=== PATIENT | male | born 1990 | race Caucasian/White ===

== ENCOUNTER 2024-12-22 18:12 | Inpatient (IN) | payer BC ==
[~2024-12-22] VITALS: Ht 170.2 cm; Wt 129.2 kg
[~2024-12-22 18:12] MED LIST: ATOM100C2 PO; ERGO500093 PO; HYOS-14 SL; LEVO5TAB13 PO; LISI2.5T13 PO; METF-446 PO; SEMA2PEN SQ; VENL-62 PO
--- NOTE | 2024-12-22 18:27 | ERN ---
ED Note History of Present Illness Stated Complaint: RIGHT LOWER ABD PAIN Chief Complaint: Abdominal Pain Time Seen by MD: 18:15 Time Seen by Midlevel: 18:15 Dictation: The patient is a 34-year-old male with a history of hypertension, diabetes, appendectomy who presents to the emergency department with complaints of right upper quadrant pain associated with nausea onset 30 minutes prior to arrival. Patient denies any fevers, diarrhea or constipation. Denies any urinary discomfort. Allergies: Coded Allergies: No Known Drug Allergies (Unverified Allergy, Unknown, 08/10/24) Home Meds Reported Medications Levocetirizine Dihydrochloride (Levocetirizine Dihydrochloride) 5 Mg Tablet, 5 MG PO HS, TAB 08/10/24 Ergocalciferol (Vitamin D2) (Vitamin D2) 1,250 Mcg (38484 Unit) Capsule, 1 TAB PO QWEEK 08/10/24 Semaglutide (Ozempic) 2 Mg/0.75 Ml (8 Mg/3 Ml) Pen.injctr, 2 MG SQ QWEEK 08/10/24 Venlafaxine HCl (Venlafaxine HCl ER) 37.5 Mg Cap.er.24h, 1 CAP PO DAILY 08/10/24 Lisinopril (Lisinopril) 2.5 Mg Tablet, 1 TAB PO DAILY 08/10/24 Hyoscyamine Sulfate (Hyoscyamine Sulfate) 0.125 Mg Tab.rapdis, 1 TAB SL QIDP PRN for indigestion 08/10/24 Metformin HCl (Metformin HCl) 1,000 Mg Tablet, 1 TAB PO DAILY 08/10/24 Atomoxetine HCl (Atomoxetine HCl) 100 Mg Capsule, 1 CAP PO HS 08/10/24 Past Medical History Past Medical History: Diabetes-Type II, Hypertension Surgical History: Appendectomy Surgical History Other: SURYA ALANIZ Note Reviewed/Agreed w/PFSH: Yes Review of System Dictation Constitutional: Negative for fever,chills, and weight loss Eyes: Negative for injury, pain,redness, and discharge ENT: Negative for injury,pain or swelling Cardiovascular: Negative for chest pain, palpitations, and edema Respiratory: Negative for shortness of breath, cough, and wheezing, Abdomen/GI: Negative for vomiting, diarrhea, and constipation positive for abdominal pain, nausea Back: Negative for injury and pain : Negative for injury, bleeding and discharge MS/Extremity: Negative for injury and deformity Skin: Negative for rash, and discoloration Neuro: Negative for headache, weakness, numbness, tingling, and seizure Psych: Negative for suicide ideation, homicidal ideation, and hallucinations Initial Vital Sign VS Vital Signs Date Time Temp Pulse Resp B/P (MAP) Pulse Ox O2 Delivery O2 Flow Rate FiO2 12/22/24 18:15 99.5 138 32 159/79 Room Air 12/22/24 18:44 95 0 21 Physical Exam Dictation Vital Signs reviewed General Appearance: Alert, oriented x 3, no acute distress, well developed, nourished. Head and Face: non-traumatic. Eyes: PERRL, pink conjunctivas, eyelid no trauma, anterior chamber with arcus senilis. Ears: Pinnas intact and no signs of trauma or erythema ear canals clear and no discharge TM no erythema Nose: No discharge, no bleeding. Oropharynx: Mouth normal, tongue pink. pharynx clear,no erythema, tonsils no exudates, no abscesses noted, mucous membrane moist Neck: Supple, non-tender, no thyromegaly, no masses, no JVD, no bruits Breast:Deferred Chest:No tenderness, no crepitus, no paradoxical movement, no retractions Lungs:Clear, well-ventilated, symmetric, no rales, no wheezing, no rhonchi, no stridor, good breath sounds bilaterally Heart: Regular rate, regular rhythm, no murmur, no gallops Vascular: no peripheral edema, Abdomen: Soft, positive bowel sounds, nondistended, no guarding, Right upper quadrant tenderness, no rebound, no masses no hepatomegaly, no splenomegaly, + Biggs's sign, no hernias. Rectal: Deferred Genital: Deferred Neurological: Normal speech, motor function intact, sensory function intact Musculoskeletal: Neck nontender, full range of motion, back nontender, full range of motion, Extremities: nontender, full range of motion Skin: Color pink, dry, no turgor, no rash, no lacerations, no abrasions, no contusions. Lymphatic: Deferred Results (Laboratory/Radiology) Laboratory/Radiology Laboratory Tests Test 12/22/24 18:31 12/22/24 18:58 12/22/24 19:33 12/22/24 21:45 White Blood Count 12.1 K/uL (4.8-10.8) H Red Blood Count 5.21 MIL/uL (4.50-6.20) Hemoglobin 15.4 g/dL (14.0-18.0) Hematocrit 46.4 % (42-54) Mean Corpuscular Volume 89.1 fL (79-99) Mean Corpuscular Hemoglobin 29.6 pg (27.0-33.0) Mean Corpuscular Hemoglobin Concent 33.2 g/dL (32.0-36.0) Red Cell Distribution Width 13.9 % (11.0-15.5) Platelet Count 303 K/uL (130-400) Mean Platelet Volume 8.8 fL (7.5-10.5) Immature Granulocyte % (Auto) 0.3 % (0-1) Neutrophils (%) (Auto) 70.0 % (40.0-77.0) Lymphocytes (%) (Auto) 25.5 % (21.0-51.0) Monocytes (%) (Auto) 3.2 % (3.0-13.0) Eosinophils (%) (Auto) 0.7 % (0.0-8.0) Basophils (%) (Auto) 0.3 % (0.0-5.0) Neutrophils # (Auto) 8.5 K/uL (1.8-7.7) H Lymphocytes # (Auto) 3.1 K/uL (1.0-4.8) Monocytes # (Auto) 0.4 K/uL (0.1-1.0) Eosinophils # (Auto) 0.08 K/uL (0.00-0.70) Basophils # (Auto) 0.04 K/uL (0.00-0.20) Absolute Immature Granulocyte (auto 0.04 K/uL (0-1) Nucleated Red Blood Cells 0.0 % (0.0-0.19) Sodium Level 137 mmol/L (136-145) Potassium Level 3.9 mmol/L (3.5-5.1) Chloride Level 101 mmol/L (101-111) Carbon Dioxide Level 24 mmol/L (21-32) Blood Urea Nitrogen 17 mg/dL (7-18) Creatinine 1.0 mg/dL (0.5-1.3) Glomerular Filtration Rate Calc 101 mL/min (>90) Random Glucose 144 mg/dL (70-105) H Total Calcium 9.3 mg/dL (8.5-10.1) Total Bilirubin 0.5 mg/dL (0.2-1.0) Direct Bilirubin 0.1 mg/dL (0.0-0.3) Aspartate Amino Transf (AST/SGOT) 20 U/L (10-37) Alanine Aminotransferase (ALT/SGPT) 54 U/L (12-78) Alkaline Phosphatase 92 U/L (50-136) Total Creatine Kinase 157 U/L (21-232) Troponin I High Sensitivity < 4 ng/L (4-75) L Total Protein 8.2 g/dL (6.0-8.3) Albumin 4.4 g/dL (3.5-5.0) Lipase 28 U/L (16-77) Lactic Acid Level 4.4 mmol/L (0.8-2.5) H Whole Blood Glucose 153 MG/DL (70-110) H Urine Color LIGHT-YELLOW (YELLOW) Urine Appearance CLEAR (CLEAR) Urine pH 5.5 (5.0-8.0) Urine Specific [place] OVER (1.001-1.031) Urine Protein NEGATIVE mg/dL (NEGATIVE) Urine Glucose (UA) NEGATIVE mg/dL (NEGATIVE) Urine Ketones 10 mg/dL (NEGATIVE) H Urine Occult Blood NEGATIVE (NEGATIVE) Urine Nitrate NEGATIVE (NEGATIVE) Urine Bilirubin NEGATIVE mg/dL (NEGATIVE) Urine Urobilinogen 0.2 mg/dL (0.2-1.0) Urine Leukocyte Esterase NEGATIVE Griffin/uL Urine RBC 0-1 /HPF (0-1) Urine WBC 0-1 /HPF (0-1) Urine Bacteria RARE /HPF (None Seen) Urine Hyaline Casts 6-10 /LPF (0-1 /LPF) H Urine Yeast RARE /HPF (None Seen) Urine Opiates Screen POSITIVE (NEGATIVE) H Urine Barbiturates Screen NEGATIVE (NEGATIVE) Urine Phencyclidine Screen NEGATIVE (NEGATIVE) Urine Amphetamines Screen NEGATIVE (NEGATIVE) Urine Benzodiazepines Screen NEGATIVE (NEGATIVE) Urine Cocaine Screen NEGATIVE (NEGATIVE) Urine Marijuana (THC) Screen NEGATIVE (NEGATIVE) REASON: ruq pain ORDERING PHYSICIAN: CRISTIAN LANGFORD [employer] PROCEDURE: CXR1VW - CHEST 1VW CHEST 1VW CLINICAL HISTORY: ruq pain COMPARISON: 08/10/2024 TECHNIQUE: Single view of the chest was obtained. FINDINGS: Lungs are clear. The cardiac size and mediastinum are unremarkable. The bony structures are within normal limits. IMPRESSION: No acute cardiopulmonary process identified. REASON: ruq abd pain, hx of abscess ORDERING PHYSICIAN: CRISTINA LANGFORD [facility] PROCEDURE: ABD PEL W - CT ABDOMEN/PELVIS W/CONTRAST CT ABDOMEN/PELVIS W/CONTRAST CLINICAL HISTORY: ruq abd pain, hx of abscess COMPARISON: 08/18/2024 TECHNIQUE: Sequential axial images of abdomen and pelvis with 75 mL of Omnipaque 350 IV contrast with sagittal and coronal reconstructions. CT was performed with one or more of the following dose reduction techniques: automated exposure control, adjustment of the mA and/or kV according to patient size, or use of iterative reconstruction technique. FINDINGS: There is minimal atelectasis lung bases. There is diffuse fatty infiltration of the enlarged liver. The spleen is unremarkable. The gallbladder pancreas and adrenal glands are unremarkable. The kidneys and bladder are within normal limits. There are scattered sigmoid colon diverticuli with no acute inflammatory changes. There is no identified bowel obstruction. Note is made of stranding in the right colic gutter and likely scarring with surgical clips or calculi at the prior appendectomy and abscess site. There is no identified recurrent or residual abscess. The bony structures are stable. IMPRESSION: Inflammatory changes in the right colic gutter and right lower quadrant with no identified abscess. Sigmoid diverticulosis. REASON: Adominal Pain ORDERING PHYSICIAN: CRISTINA LANGFORD [facility] PROCEDURE: ABDRUQLTD - US ABDOMINAL RUQ\LTD US ABDOMINAL RUQ\E\LTD HISTORY: Abdominal Pain COMPARISON: None FINDINGS: Liver demonstrates increased size and echogenicity with no focal lesions. The portal vein is patent. The gallbladder is free of calculi wall thickening or pericholecystic fluid. The pancreas is obscured by bowel gas. The common duct measures 6 mm. The right kidney measures 11.5 cm length and there is no identified hydronephrosis or nephrolithiasis. IMPRESSION: Limited study due to bowel gas. Large fatty liver. 6 mm common duct which is dilated for age. The gallbladder appears unremarkable. Labs Reviewed?: Yes EKG: (+) rhythm (Sinus tachycardia) EKG Comment: Date:12/22/2024 Time:1853 Ventricular rate:138 AR interval:132 QRS duration:79 QT/QTc:286 EKG interpretation: Sinus tachycardia Reviewed by ED Attending no STEMI ED Course ED Course Orders Procedure Category Date Status Time Cbc With Differential LAB 12/22/24 Complete 18:23 Troponin I High LAB 12/22/24 Complete Sensitivity 18:23 Urinalysis Profile LAB 12/22/24 Complete 18:23 Us Abdominal Ruq\Ltd US 12/22/24 Resulted 18:23 12 Lead Ekg Tracing- EKG 12/22/24 Logged Technical 18:23 0.9%Nacl 1000ml (Ns PHA 12/22/24 Complete 1000ml) 18:30 Morphine 4mg Syg PHA 12/22/24 Complete (Morphine 4mg Syg) 18:30 Ondansetron 4mg Inj PHA 12/22/24 Complete (Zofran 4mg Inj) 18:30 Pantoprazole 40mg Inj PHA 12/22/24 Complete (Protonix 40mg Inj 18:30 Creatine Kinase, Total LAB 12/22/24 Complete 18:23 Lipase LAB 12/22/24 Complete 18:23 Basic Metabolic Panel LAB 12/22/24 Complete 18:23 Hepatic Function Panel LAB 12/22/24 Complete 18:23 Drug Screen Urine LAB 12/22/24 Complete 18:23 Blood Cult FABIOLA 12/22/24 In Process 18:56 Zosyn 3.375gm+Ns 50ml PHA 12/22/24 Complete (Zosyn 3.375gm+Ns 18:56 0.9%Nacl 1000ml (Ns PHA 12/22/24 Complete 1000ml) 19:00 Lactic Acid LAB 12/22/24 Complete 18:56 Ct Abdomen/Pelvis CT 12/22/24 Resulted W/Contrast 19:08 Chest 1vw RAD 12/22/24 Resulted 19:29 Acetaminophen 500mg PHA 12/22/24 Complete Tab (Tylenol 500mg T 20:00 Iohexol (Omnipaque) PHA 12/22/24 Complete 20:00 Covid19 (Sars Antigen LAB 12/22/24 Logged Rapid) 22:10 Influenza Type A & B, LAB 12/22/24 Logged Rapid 22:10 Rapid (Group A Strep) LAB 12/22/24 Logged 22:10 Edm Admit Bridge Order ADM 12/22/24 Transmitted 22:10 Lactic Acid (Removed) LAB 12/22/24 Logged 22:13 Current Medications Medications (Trade) Dose Ordered Sig/Liss Route PRN Reason Start Time Stop Time Status Last Admin Dose Admin Acetaminophen (TYLenol 500MG TAB) 1,000 mg ONCE ONCE PO 12/22/24 20:00 12/22/24 20:01 DC 12/22/24 20:49 Iohexol (Omnipaque) 35,000 mg STK-MED ONCE IV 12/22/24 20:00 12/22/24 20:00 DC Morphine Sulfate (morPHINE 4MG SYG) 4 mg ONCE ONCE IVP 12/22/24 18:30 12/22/24 18:31 DC 12/22/24 19:40 Ondansetron HCl (zoFRAN 4MG INJ) 4 mg ONCE ONCE IVP 12/22/24 18:30 12/22/24 18:31 DC 12/22/24 19:40 Pantoprazole Sodium (PROTonix 40MG INJ) 40 mg ONCE ONCE IVP 12/22/24 18:30 12/22/24 18:31 DC 12/22/24 19:40 Piperacillin Sod/ Tazobactam Sod 50 ml @ 200 mls/hr STAT STAT IVPB 12/22/24 18:56 12/22/24 19:10 DC 12/22/24 19:31 Sodium Chloride 1,000 ml @ 0 mls/hr ONCE ONCE IV 12/22/24 18:30 12/22/24 18:58 DC Sodium Chloride 2,672 ml @ 890.666 mls/hr ONCE ONCE IV 12/22/24 19:00 12/22/24 21:59 DC 12/22/24 19:31 Vital Signs Date Time Temp Pulse Resp B/P (MAP) Pulse Ox O2 Delivery O2 Flow Rate FiO2 12/22/24 21:08 98.4 140 24 148/85 Room Air* 0 21 12/22/24 18:44 98.2 143 35 135/76 95 Room Air* 0 21 12/22/24 18:15 99.5 138 32 159/79 Room Air Medical Decision Making [facility] The patient is a 34-year-old male with a history of hypertension, diabetes, appendectomy who presents to the emergency department with complaints of right upper quadrant pain associated with nausea onset 30 minutes prior to arrival. Patient denies any fevers, diarrhea or constipation. Denies any urinary discomfort. CBC showed mild leukocytosis, no anemia, chemistry showed no electrolyte imbalance, negative lipase, negative liver enzymes, lactic acid of 4.4, urinalysis negative for leukocyte esterase, nitrites, chest x-ray showed no acute pathology. Right upper quadrant ultrasound revealed a 6 mm CBD, CT abdomen and pelvis showed inflammatory changes of the right colic gutter and right lower quadrant with no identified abscess. Patient denies any upper respiratory symptoms, patient denies any recent illness or wounds. No other symptoms reported. Patient will be admitted for further evaluation and treatment. Differential diagnosis: Sepsis, cholelithiasis, cholecystitis, electrolyte imbalance, abdominal abscess Comorbidities: Diabetes, hypertension, appendectomy Tests considered and not ordered secondary to shared decision making include: none Previous outside records reviewed: none Risk of complication and/or morbidity or mortality of patient management: The patient meets criteria for admission. Need for emergency major/minor surgery: No There are no social concerns with this patient. I independently interpreted the tests I ordered (labs, urinalysis, etc.). I discussed the case with the hospitalist for admission. [facility] who accepts admission I discussed the case with the following specialists: none. Historian: pateint. I independently interpreted imaging studies and EKGs that I ordered (US, CT, XR, EKG, etc.). External chart review: none. Medical management and examination interpretation discussions were had by me with other qualified healthcare professionals as indicated for the patient's care. Critical Care Note Critical Time: other (40) Comment(s) Total critical care time was 40 minutes. Excluding time for procedures. Management of critically ill patient with concern for acute decompensation. Management included interpretation of laboratory values and imaging, hemodynamics, time for consultation with consultants and admitting physician. DX & DISP Disposition: Inpatient Decision to Admit Date: Dec 22, 2024 Decision to Admit Time: 22:25 Departure Impression: Primary Impression: Severe sepsis Additional Impressions: Abdominal pain, right upper quadrant, Elevated lactic acid level, Leukocytosis, Tachycardia Condition: Stable Referrals: YORDY ARITA MD (PCP) I have examined patient, & reviewed all documents, & agreed W/ the Diagnosis, and Plan CRISTINA LANGFORD Dec 22, 2024 18:27
[2024-12-22] MEDS ORDERED: 0.9%NACL 1000ML 1,000 ML IV ONE (18:30)
[2024-12-22 18:39] LABS: BASOPHILS # (AUTO) 0.04 K/uL (0.00-0.20); BASOPHILS % (AUTO) 0.3 % (0.0-5.0); EOSINOPHILS # (AUTO) 0.08 K/uL (0.00-0.70); EOSINOPHILS % (AUTO) 0.7 % (0.0-8.0); HEMATOCRIT 46.4 % (42-54); IMMATURE GRANULOCYTE ABSOLUTE 0.04 K/uL (0-1); LYMPHOCYTES # (AUTO) 3.1 K/uL (1.0-4.8); LYMPHOCYTES % (AUTO) 25.5 % (21.0-51.0); MEAN CORPUSCULAR HEMOGLOBIN 29.6 pg (27.0-33.0); MEAN CORPUSCULAR HGB CONC 33.2 g/dL (32.0-36.0); MEAN CORPUSCULAR VOLUME 89.1 fL (79-99); MONOCYTES # (AUTO) 0.4 K/uL (0.1-1.0); MONOCYTES % (AUTO) 3.2 % (3.0-13.0); NEUTROPHILS # (AUTO) 8.5 K/uL (1.8-7.7); PLATELET COUNT (AUTO) 303 K/uL (130-400); RED BLOOD CELL COUNT(AUTO) 5.21 MIL/uL (4.50-6.20); RED CELL DISTRIBUTION WIDTH 13.9 % (11.0-15.5); WHITE BLOOD COUNT (AUTO) 12.1 K/uL (4.8-10.8)
[2024-12-22 18:48] LABS: POTASSIUM 3.9 mmol/L (3.5-5.1)
[2024-12-22 18:57] LABS: ALBUMIN 4.4 g/dL (3.5-5.0); BILIRUBIN,DIRECT 0.1 mg/dL (0.0-0.3); BILIRUBIN,TOTAL 0.5 mg/dL (0.2-1.0); TOTAL PROTEIN, SERUM 8.2 g/dL (6.0-8.3)
[2024-12-22] MEDS: [UNRECOGNIZED DRUG - OTHER] IV ONE (19:31)
[2024-12-22] MEDS: ZOSYN 3.375GM+NS 50ML 50 ML IVPB STA (19:31)
[2024-12-22] MEDS: morPHINE 4 MG SYG IVP ONE (19:40)
[2024-12-22] MEDS: PANTOPrazole 40 MG/VIAL IVP ONE (19:40)
[2024-12-22] MEDS: ondanSETRON 4MG INJ IVP ONE (19:40)
[2024-12-22] MEDS ORDERED: IOHEXOL 350 MG/ML 100ML INFUS..BTL IV ONE (20:00)
--- NOTE | 2024-12-22 20:14 | HMCIMG ---
CHEST 1VW CLINICAL HISTORY: ruq pain COMPARISON: 08/10/2024 TECHNIQUE: Single view of the chest was obtained. FINDINGS: Lungs are clear. The cardiac size and mediastinum are unremarkable. The bony structures are within normal limits. IMPRESSION: No acute cardiopulmonary process identified.
--- NOTE | 2024-12-22 20:27 | HMCIMG ---
US ABDOMINAL RUQ\E\LTD HISTORY: Abdominal Pain COMPARISON: None FINDINGS: Liver demonstrates increased size and echogenicity with no focal lesions. The portal vein is patent. The gallbladder is free of calculi wall thickening or pericholecystic fluid. The pancreas is obscured by bowel gas. The common duct measures 6 mm. The right kidney measures 11.5 cm length and there is no identified hydronephrosis or nephrolithiasis. IMPRESSION: Limited study due to bowel gas. Large fatty liver. 6 mm common duct which is dilated for age. The gallbladder appears unremarkable.
[2024-12-22] MEDS: acetaMINOPHEN 500 MG TABLET PO ONE (20:49)
--- NOTE | 2024-12-22 20:56 | HMCIMG ---
CT ABDOMEN/PELVIS W/CONTRAST CLINICAL HISTORY: ruq abd pain, hx of abscess COMPARISON: 08/18/2024 TECHNIQUE: Sequential axial images of abdomen and pelvis with 75 mL of Omnipaque 350 IV contrast with sagittal and coronal reconstructions. CT was performed with one or more of the following dose reduction techniques: automated exposure control, adjustment of the mA and/or kV according to patient size, or use of iterative reconstruction technique. FINDINGS: There is minimal atelectasis lung bases. There is diffuse fatty infiltration of the enlarged liver. The spleen is unremarkable. The gallbladder pancreas and adrenal glands are unremarkable. The kidneys and bladder are within normal limits. There are scattered sigmoid colon diverticuli with no acute inflammatory changes. There is no identified bowel obstruction. Note is made of stranding in the right colic gutter and likely scarring with surgical clips or calculi at the prior appendectomy and abscess site. There is no identified recurrent or residual abscess. The bony structures are stable. IMPRESSION: Inflammatory changes in the right colic gutter and right lower quadrant with no identified abscess. Sigmoid diverticulosis.
[2024-12-22 21:57] LABS: APPEARANCE,URINE CLEAR (CLEAR); BILIRUBIN,URINE NEGATIVE (NEGATIVE); COLOR,URINE LIGHT-YELLOW (YELLOW); GLUCOSE, URINE (UA) NEGATIVE (NEGATIVE); KETONES,URINE 10 mg/dL (NEGATIVE); LEUKOCYTE ESTERASE ,URINE NEGATIVE Leu/uL (NEGATIVE); NITRATE,URINE NEGATIVE (NEGATIVE); OCCULT BLOOD,URINE NEGATIVE (NEGATIVE); PH,URINE 5.5 (5.0-8.0); PROTEIN,URINE NEGATIVE (NEGATIVE); UROBILINOGEN,URINE 0.2 mg/dL (0.2-1.0)
[2024-12-22 21:59] LABS: ADD UA MICROSCOPIC YES; BACTERIA,URINE RARE /HPF (None Seen); MUCUS,URINE RARE LPF (None Seen); RBC,URINE 0-1 /HPF (0-1); WBC,URINE 0-1 /HPF (0-1); YEAST,URINE BUDDING RARE /HPF (None Seen)
[2024-12-22 22:05] LABS: AMPHET/METH SCREEN,URINE NEGATIVE (NEGATIVE); BARBITURATE SCREEN, URINE NEGATIVE (NEGATIVE); BENZODIAZEPINES SCREEN,URINE NEGATIVE (NEGATIVE); CANNABINOID SCREEN,URINE NEGATIVE (NEGATIVE); COCAINE SCREEN,URINE NEGATIVE (NEGATIVE); OPIATE SCREEN,URINE POSITIVE (NEGATIVE); PHENCYCLIDINE SCREEN,URINE NEGATIVE (NEGATIVE)
[2024-12-22 23:12] LABS: COVID19 (SARS ANTIGEN RAPID) PRESUMPTIVE NEGATIVE (NEGATIVE)
[2024-12-22 23:32] LABS: INFLUENZA TYPE A Negative For Type A (NEGATIVE); INFLUENZA TYPE B Negative For Type B (NEGATIVE)
[2024-12-22] MEDS: metoPROLOL tartRATE 1 MG/ML 5ML VIAL IV ONE (23:34)
[2024-12-22 23:36] LABS: RAPID GROUP A STREP NEGATIVE (NEGATIVE)
[2024-12-22] MEDS: 0.9%NACL 1000ML 1,000 ML IV SCH (23:45)
--- NOTE | 2024-12-22 23:59 | HP ---
[facility] HISTORY & PHYSICAL Date Patient Seen: Dec 22, 2024 Time of Visit: 23:57 Supervising Physician: Dr Po Cabello Primary Care Physician: Dr. Hutchison Outpatient Specialists: [ ] Inpatient Consults: [ ] PROBLEM LIST: Acute abdominal pain, ultrasound of the abdomen showed fatty liver with 6 mm common bile duct, CT of the abdomen showed possible colitis Hepatic steatosis, POA Hypertension, POA DM type 2, with hyperglycemia, POA Morbid obesity, BMI of 45.2 POA Leukocytosis, POA Lactic acidosis, POA Sepsis, likely from intra-abdominal infection initial lactic acid level above 4, trending down PLAN: Admit to medical-surgical floor Multimodal pain relief VS per unit protocol Continue Zosyn IV Treat fever aggressively Trend lactic acid level Give 1 L of IV fluids x1 bolus now [id number] cc/hour Follow up culture results NPO for now Aspiration precautions Zofran4 mg IV q.6 for nausea and vomiting ISS and fingerstick per unit protocol HPI: 34-year-old male with past medical history of hypertension, DM type 2, who presented to ED with complaint of right upper quadrant pain with associated nausea and found to have acute abdomen and possible colitis. Patient was seen and examined in ED with no relatives present at bedside. Apparently his abdominal pain started 30 minutes prior to admission with no associated vomiting. Patient also denies any fever, diarrhea, possible food poisoning. Also denies any history of peptic ulcer disease, or use of NSAIDs. In ED stat chest x-ray was done showed no acute intrapulmonary process, CT of the abdomen showed hepatic steatosis and possible colitis, his ultrasound of the abdomen showed 6 mm cystic duct which is dilated for his age. CBC is remarkable for [place] [id number], chemistry unrevealing for any acute electrolyte or kidney dysfunction. His initial lactic acid level was 4.4, now at 2.8 Following IV bolus of3 L and one dose of IV Zosyn. At present patient is currently hemodynamically stable, on room air with appropriate oxygen saturation, still with heart rate of 119, with adequate systolic blood pressure. Patient denies any headache, chest pain, shortness of breath, difficulty urinating, fever, or generalized body weakness. Patient denies any smoking, or any alcohol intake. Patient was previously vaccinated against COVID and his flu shot is not up-to-date. PAST MEDICAL HX: see above PAST SURGICAL HX: Appendectomy SOCIAL HISTORY: No tobacco, ETOH, or illicit drug use Coded Allergies: No Known Drug Allergies (Unverified Allergy, Unknown, 08/10/24) REVIEW OF SYSTEMS: 12 point ROS reviewed with patient. Pertinent positives mentioned above. Otherwise negative. PHYSICAL EXAM: GENERAL: alert, weak, awake oriented x 3 HEENT: EOMI, Sclera non icteric, moist mucosa NECK: Supple, no JVD, trachea midline LUNGS: Clear breath sounds bilaterally. No wheezes HEART: Regular rate and rhythm. Normal S1 and S2, without murmurs ABD: Large abdomen, right upper quadrant tenderness on palpation EXT: No clubbing cyanosis or edema NEURO: Alert and oriented to person, follows commands Vital Signs (last 8hr) Date Time Temp Pulse Resp B/P (MAP) Pulse Ox O2 Delivery O2 Flow Rate FiO2 12/22/24 23:34 127 126/75 12/22/24 22:45 99.1 129 29 132/59 Room Air* 0 21 12/22/24 21:08 98.4 140 24 148/85 Room Air* 0 21 12/22/24 18:44 98.2 143 35 135/76 95 Room Air* 0 21 12/22/24 18:15 99.5 138 32 159/79 Room Air LABS: Hematology Labs: Test 12/22/24 18:31 Range/Units White Blood Count 12.1 H 4.8-10.8 K/uL Red Blood Count 5.21 4.50-6.20 MIL/uL Hemoglobin 15.4 14.0-18.0 g/dL Hematocrit 46.4 42-54 % Mean Corpuscular Volume 89.1 79-99 fL Mean Corpuscular Hemoglobin 29.6 27.0-33.0 pg Mean Corpuscular Hemoglobin Concent 33.2 32.0-36.0 g/dL Red Cell Distribution Width 13.9 11.0-15.5 % Platelet Count 303 130-400 K/uL Mean Platelet Volume 8.8 7.5-10.5 fL Immature Granulocyte % (Auto) 0.3 0-1 % Neutrophils (%) (Auto) 70.0 40.0-77.0 % Lymphocytes (%) (Auto) 25.5 21.0-51.0 % Monocytes (%) (Auto) 3.2 3.0-13.0 % Eosinophils (%) (Auto) 0.7 0.0-8.0 % Basophils (%) (Auto) 0.3 0.0-5.0 % Neutrophils # (Auto) 8.5 H 1.8-7.7 K/uL Lymphocytes # (Auto) 3.1 1.0-4.8 K/uL Monocytes # (Auto) 0.4 0.1-1.0 K/uL Eosinophils # (Auto) 0.08 0.00-0.70 K/uL Basophils # (Auto) 0.04 0.00-0.20 K/uL Absolute Immature Granulocyte (auto 0.04 0-1 K/uL Nucleated Red Blood Cells 0.0 0.0-0.19 % Chemistry Labs: Test 12/22/24 22:30 12/22/24 19:33 12/22/24 18:31 Range/Units Lactic Acid Level 2.8 H 0.8-2.5 mmol/L Whole Blood Glucose 153 H 70-110 MG/DL Sodium Level 137 136-145 mmol/L Potassium Level 3.9 3.5-5.1 mmol/L Chloride Level 101 101-111 mmol/L Carbon Dioxide Level 24 21-32 mmol/L Blood Urea Nitrogen 17 7-18 mg/dL Creatinine 1.0 0.5-1.3 mg/dL Glomerular Filtration Rate Calc 101 >90 mL/min Random Glucose 144 H 70-105 mg/dL Total Calcium 9.3 8.5-10.1 mg/dL Total Bilirubin 0.5 0.2-1.0 mg/dL Direct Bilirubin 0.1 0.0-0.3 mg/dL Aspartate Amino Transf (AST/SGOT) 20 10-37 U/L Alanine Aminotransferase (ALT/SGPT) 54 12-78 U/L Alkaline Phosphatase 92 50-136 U/L Total Creatine Kinase 157 21-232 U/L Troponin I High Sensitivity < 4 L 4-75 ng/L Total Protein 8.2 6.0-8.3 g/dL Albumin 4.4 3.5-5.0 g/dL Lipase 28 16-77 U/L DIAGNOSTICS / RADIOLOGY RESULTS: CT ABDOMEN/PELVIS W/CONTRAST CLINICAL HISTORY: ruq abd pain, hx of abscess COMPARISON: 08/18/2024 TECHNIQUE: Sequential axial images of abdomen and pelvis with 75 mL of Omnipaque 350 IV contrast with sagittal and coronal reconstructions. CT was performed with one or more of the following dose reduction techniques: automated exposure control, adjustment of the mA and/or kV according to patient size, or use of iterative reconstruction technique. FINDINGS: There is minimal atelectasis lung bases. There is diffuse fatty infiltration of the enlarged liver. The spleen is unremarkable. The gallbladder pancreas and adrenal glands are unremarkable. The kidneys and bladder are within normal limits. There are scattered sigmoid colon diverticuli with no acute inflammatory changes. There is no identified bowel obstruction. Note is made of stranding in the right colic gutter and likely scarring with surgical clips or calculi at the prior appendectomy and abscess site. There is no identified recurrent or residual abscess. The bony structures are stable. IMPRESSION: Inflammatory changes in the right colic gutter and right lower quadrant with no identified abscess. Sigmoid diverticulosis. CHEST 1VW CLINICAL HISTORY: ruq pain COMPARISON: 08/10/2024 TECHNIQUE: Single view of the chest was obtained. FINDINGS: Lungs are clear. The cardiac size and mediastinum are unremarkable. The bony structures are within normal limits. IMPRESSION: No acute cardiopulmonary process identified. US ABDOMINAL RUQ\E\LTD HISTORY: Abdominal Pain COMPARISON: None FINDINGS: Liver demonstrates increased size and echogenicity with no focal lesions. The portal vein is patent. The gallbladder is free of calculi wall thickening or pericholecystic fluid. The pancreas is obscured by bowel gas. The common duct measures 6 mm. The right kidney measures 11.5 cm length and there is no identified hydronephrosis or nephrolithiasis. IMPRESSION: Limited study due to bowel gas. Large fatty liver. 6 mm common duct which is dilated for age. The gallbladder appears unremarkable. PLAN NEURO: Minimize central acting medications as possible. Maintain fall precautions, adequate lighting during the day PULMONARY: Supplemental 02 as needed. Maintain aspiration precautions at all times CARDIOVASCULAR: Follow hemodynamics. Vital signs per facility protocol GI & NUTRITION: Continue with nutritional support. Continue stool softeners and laxatives as needed. KIDNEYS & ELECTROLYTES: Strict monitoring of intake, output and overall fluid balance. Avoid nephrotoxic medications to the extent possible. Medications to be dosed according to renal function. Monitor electrolytes and replace as needed ENDOCRINE: Maintain blood glucose between 100-180 at all times. Hypoglycemia protocol in place INFECTIOUS DISEASE: Trend temperature, WBC and procalcitonin level Follow cultures, deescalate antibiotics as soon as possible. Panculture if new onset fever ONCOLOGY/HEMATOLOGY/COAGULATION: Monitor for s/s of bleeding Monitor hemoglobin, coagulation studies as needed SKIN: Pressure ulcer prevention per facility protocol Specialty mattress ORTHO/REHAB: Continue PT/OT Prophylaxis: Continue GI and DVT prophylaxis Code Status: Full Resuscitation Disposition: TBD Supervising physician: IVANIA Garcia DIRECTOR OF CLINICAL EDUCATION Dec 22, 2024 23:59
[2024-12-23] MEDS ORDERED: morPHINE 2 MG SYG IVP PRN
[2024-12-23] MEDS ORDERED: hydrALAZine 20MG/ML VIAL IV PRN
[2024-12-23] MEDS ORDERED: ondanSETRON 4MG INJ IVP PRN
[2024-12-23] MEDS ORDERED: acetaMINOPHEN 650 MG SUPPOSITORY RC PRN
[2024-12-23] MEDS: INSULIN humuLIN R 100 UNIT/ML 3ML SQ SCH
[2024-12-23] MEDS ORDERED: LAbetaLOL 20MG SYG IV PRN
[2024-12-23] MEDS ORDERED: 0.9%NACL 1000ML 1,000 ML IV SCH (00:30)
[2024-12-23] MEDS ORDERED: HYDROcodone/APAP 5/325 1 TAB TABLET PO PRN (00:30)
[2024-12-23] MEDS: ZOSYN 3.375GM +NS 50ML IV SCH (01:09)
[2024-12-23] MEDS: LACTATED RINGERS 1000ML 1,000 ML IV SCH (01:10)
--- NOTE | 2024-12-23 01:46 | NUR ---
PATIENT DIDN'T HAVE HIS HOME MEDICATIONS AT THIS TIME WILL HAVE FAMILY BRING IN THE MORNING
[2024-12-23 02:43] VITALS: BP 130/72; PULSE 111; RESP 20; TEMP 98.5
[2024-12-23 02:45] VITALS: O2SAT 95
[2024-12-23 05:34] LABS: BASOPHILS # (AUTO) 0.04 K/uL (0.00-0.20); BASOPHILS % (AUTO) 0.3 % (0.0-5.0); EOSINOPHILS # (AUTO) 0.01 K/uL (0.00-0.70); EOSINOPHILS % (AUTO) 0.1 % (0.0-8.0); HEMATOCRIT 39.3 % (42-54); IMMATURE GRANULOCYTE ABSOLUTE 0.06 K/uL (0-1); LYMPHOCYTES # (AUTO) 2.2 K/uL (1.0-4.8); LYMPHOCYTES % (AUTO) 15.7 % (21.0-51.0); MEAN CORPUSCULAR HGB CONC 32.8 g/dL (32.0-36.0); MEAN CORPUSCULAR VOLUME 88.3 fL (79-99); MONOCYTES # (AUTO) 0.7 K/uL (0.1-1.0); MONOCYTES % (AUTO) 5.2 % (3.0-13.0); NEUTROPHILS % (AUTO) 78.3 % (40.0-77.0); PLATELET COUNT (AUTO) 219 K/uL (130-400); RED BLOOD CELL COUNT(AUTO) 4.45 MIL/uL (4.50-6.20); RED CELL DISTRIBUTION WIDTH 14.2 % (11.0-15.5); WHITE BLOOD COUNT (AUTO) 14.1 K/uL (4.8-10.8)
[2024-12-23 05:46] LABS: CREATININE 0.9 mg/dL (0.5-1.3); MAGNESIUM 1.6 mg/dL (1.80-2.40); PHOSPHORUS 3.3 mg/dL (2.5-4.9)
--- NOTE | 2024-12-23 06:45 | EKG ---
[facility] Test Date: 2024-12-22 Test Time: 18:53:31 Pat Name: MARYCRUZ CORDERO Department: [facility] Room: 328 1 Gender: M [employer] Manager: [id number] : 1990 Requested By: CRISTINA LANGFORD Order Number: [id number] Reading MD: Suraj Davidson Measurements Intervals [place] Rate: 138 P: 28 AR: 132 QRS: 56 QRSD: 79 T: -1 QT: 286 QTc: 433 Interpretive Statements Sinus tachycardia Compared to ECG 08/11/2024 17:36:55 No significant changes Electronically Signed On 12-23-2024 22:16:40 CDT by Suraj Davidson Please click the below link to view image of tracing.
[2024-12-23 08:00] VITALS: BP 130/77; PULSE 115; RESP 19; TEMP 98.2; O2SAT 93
[2024-12-23] MEDS: ENOXAPARIN SODIUM 40 MG/0.4 ML SYRINGE SQ SCH (10:20)
[2024-12-23] MEDS ORDERED: LISI10TA24 PO (10:51)
[2024-12-23] MEDS ORDERED: VENL75CA97 PO (10:51)
--- NOTE | 2024-12-23 10:55 | PN ---
[facility] PROGRESS NOTE Date Patient Seen: Dec 23, 2024 Time of Visit: 10:39 Supervising Physician: [Dr. Cabello] Primary Care Physician: Dr. Hutchison Outpatient Specialists: [ ] Inpatient Consults: [ ] PROBLEM LIST: Sepsis without septic shock, POA Acute colitis, per CT abdomen Possible acute cholecystitis with CBD dilation for abdominal ultrasound, POA Acute intractable abdominal pain, POA Lactic acidosis Hepatic steatosis, POA Hypertension, POA DM type 2, with hyperglycemia, POA Morbid obesity, BMI of 45.2 POA Leukocytosis, POA Lactic acidosis, POA PLAN: HIDA scan Order TSH, CK Order pro azalia, repeat lactic acid Continue IVF with NS at 125 mL an hour Multimodal pain relief VS per unit protocol Continue Zosyn IV Treat fever aggressively Trend lactic acid level Repeat Labs in a.m. Follow up blood culture results NPO for now Aspiration precautions Zofran4 mg IV q.6 for nausea and vomiting Resume home medications GI and DVT prophylaxis Further management per hospital course INTERVAL HISTORY: [Patient was evaluated at bedside. He was admitted for evaluation of abdominal pain associated with nausea 30 minutes [employer]. Patient states his pain was 8/10 prior to admission now improved to 1/10 with pain medication. Continues with the abdominal discomfort. States starts in right lower quadrant and radiates to right upper quadrant as well as to epigastric region. He was associated bloating. His last meal was yesterday around noon repeat overnight notes, last bowel movement was last night in the ED and reported as normal. Patient states he recently started Mounjaro this past Monday and was due for repeat dose monday. His WBCs remain elevated, lactic acid is downtrending. CT of the abdomen reveals inflammatory changes to right colic gutter and right lower quadrant without abscess formation. His right upper quadrant ultrasound revealed 6 mm common bile duct dilation without calculus, wall thickening or pericholecystic fluid. He continues on Zosyn and NS at 125 mL an hour. Curre ntly NPO, pending blood culture results.] REVIEW OF SYSTEMS: 12 point ROS reviewed with patient. Pertinent positives mentioned above. Otherwise negative. PHYSICAL EXAM: GENERAL: alert, weak, awake oriented x 3 HEENT: EOMI, Sclera non icteric, moist mucosa NECK: Supple, no JVD, trachea midline LUNGS: Clear breath sounds bilaterally. No wheezes HEART: Regular rate and rhythm. Normal S1 and S2, without murmurs ABD: Large abdomen, right upper quadrant tenderness on palpation EXT: No clubbing cyanosis or edema NEURO: Alert and oriented to person, follows commands Vital Signs (last 8hr) Date Time Temp Pulse Resp B/P (MAP) Pulse Ox O2 Delivery O2 Flow Rate FiO2 12/23/24 08:00 98.2 115 19 130/77 93 Room Air 12/23/24 02:45 95 Room Air* 0 21 12/23/24 02:43 98.4 111 20 130/72 95 Room Air LABS: Hematology Labs: Test 12/23/24 05:25 Range/Units White Blood Count 14.1 H 4.8-10.8 K/uL Red Blood Count 4.45 L 4.50-6.20 MIL/uL Hemoglobin 12.9 L 14.0-18.0 g/dL Hematocrit 39.3 L 42-54 % Mean Corpuscular Volume 88.3 79-99 fL Mean Corpuscular Hemoglobin 29.0 27.0-33.0 pg Mean Corpuscular Hemoglobin Concent 32.8 32.0-36.0 g/dL Red Cell Distribution Width 14.2 11.0-15.5 % Platelet Count 219 # 130-400 K/uL Mean Platelet Volume 8.7 7.5-10.5 fL Immature Granulocyte % (Auto) 0.4 0-1 % Neutrophils (%) (Auto) 78.3 H 40.0-77.0 % Lymphocytes (%) (Auto) 15.7 L 21.0-51.0 % Monocytes (%) (Auto) 5.2 3.0-13.0 % Eosinophils (%) (Auto) 0.1 0.0-8.0 % Basophils (%) (Auto) 0.3 0.0-5.0 % Neutrophils # (Auto) 11.0 H 1.8-7.7 K/uL Lymphocytes # (Auto) 2.2 1.0-4.8 K/uL Monocytes # (Auto) 0.7 0.1-1.0 K/uL Eosinophils # (Auto) 0.01 0.00-0.70 K/uL Basophils # (Auto) 0.04 0.00-0.20 K/uL Absolute Immature Granulocyte (auto 0.06 0-1 K/uL Nucleated Red Blood Cells 0.0 0.0-0.19 % Chemistry Labs: Test 12/23/24 05:26 12/23/24 05:25 12/22/24 22:30 12/22/24 18:31 Range/Units Whole Blood Glucose 137 H 70-110 MG/DL Sodium Level 136 136-145 mmol/L Potassium Level 4.0 3.5-5.1 mmol/L Chloride Level 103 101-111 mmol/L Carbon Dioxide Level 25 21-32 mmol/L Blood Urea Nitrogen 10 7-18 mg/dL Creatinine 0.9 0.5-1.3 mg/dL Glomerular Filtration Rate Calc 114 >90 mL/min Random Glucose 129 H 70-105 mg/dL Total Calcium 8.1 L 8.5-10.1 mg/dL Phosphorus Level 3.3 2.5-4.9 mg/dL Magnesium Level 1.60 L 1.80-2.40 mg/dL Lactic Acid Level 2.8 H 0.8-2.5 mmol/L Total Bilirubin 0.5 0.2-1.0 mg/dL Direct Bilirubin 0.1 0.0-0.3 mg/dL Aspartate Amino Transf (AST/SGOT) 20 10-37 U/L Alanine Aminotransferase (ALT/SGPT) 54 12-78 U/L Alkaline Phosphatase 92 50-136 U/L Total Creatine Kinase 157 21-232 U/L Troponin I High Sensitivity < 4 L 4-75 ng/L Total Protein 8.2 6.0-8.3 g/dL Albumin 4.4 3.5-5.0 g/dL Lipase 28 16-77 U/L DIAGNOSTICS / RADIOLOGY RESULTS: [Reviewed, pending HIDA scan] PLAN NEURO: Minimize central acting medications as possible. Maintain fall precautions, adequate lighting during the day PULMONARY: Supplemental 02 as needed. Maintain aspiration precautions at all times CARDIOVASCULAR: Follow hemodynamics. Vital signs per facility protocol GI & NUTRITION: Continue with nutritional support. Continue stool softeners and laxatives as needed. KIDNEYS & ELECTROLYTES: Strict monitoring of intake, output and overall fluid balance. Avoid nephrotoxic medications to the extent possible. Medications to be dosed according to renal function. Monitor electrolytes and replace as needed ENDOCRINE: Maintain blood glucose between 100-180 at all times. Hypoglycemia protocol in place INFECTIOUS DISEASE: Trend temperature, WBC and procalcitonin level Follow cultures, deescalate antibiotics as soon as possible. Panculture if new onset fever ONCOLOGY/HEMATOLOGY/COAGULATION: Monitor for s/s of bleeding Monitor hemoglobin, coagulation studies as needed SKIN: Pressure ulcer prevention per facility protocol Specialty mattress ORTHO/REHAB: Continue PT/OT Prophylaxis: Continue GI and DVT prophylaxis Code Status: Full Resuscitation Disposition: DIMITRIS DE LOS SANTOS Dec 23, 2024 10:55
[2024-12-23 11:05] LABS: THYROID STIMULATING HORMONE 1.2 uIU/mL (0.36-3.74)
[2024-12-23 12:00] VITALS: BP 142/89; PULSE 112; RESP 19; TEMP 98.2
--- NOTE | 2024-12-23 14:21 | NUR ---
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 He currently lives at home with his mother Glo Greco [phone]. Pt denies issues affording utilities or food, denies need for SNF, DME or in home care services. PCP is Richard Hutchison and he uses [facility] for his rx. DCP is home with mother. Addendum: 12/23/24 at 1427 by CHRIS LITTLE Amended: Links added.
[2024-12-23] MEDS: HYDROcodone/APAP 5/325 1 TAB TABLET PO PRN (18:21)
--- NOTE | 2024-12-23 18:48 | HMCIMG ---
NM HIDA WO EF/CCK REASON: r/o acute chance COMPARISON: None TECHNIQUE: Routine imaging protocol was performed following injection of 7.5 mCi technetium 99m Choletec. 2 heavily imaging was performed as well. FINDINGS: There is prompt hepatic parenchymal uptake. There is prompt excretion into the common duct and small bowel. There is near complete clearing of hepatic activity by one hour. Gallbladder activity was not identified on the 1 hour image. 2 hour delay images also show no evidence of gallbladder activity. IMPRESSION: 1. No gallbladder activity through 2 hours, this can reflect acute cholecystitis in the appropriate clinical setting. 2. No evidence of common duct obstruction, the remainder of exam is unremarkable.
[2024-12-23 20:37] VITALS: BP 149/87; PULSE 109; RESP 18; TEMP 99
[2024-12-23] MEDS: ATOMOXETINE HCL PO SCH (21:00)
[2024-12-23] MEDS: (Levocetirizine Dihydrochloride 5 MG) PO SCH (21:00)
[2024-12-24 01:10] VITALS: BP 143/83; PULSE 118; RESP 17; TEMP 98.1
[2024-12-24] MEDS: acetaMINOPHEN 325 MG TAB PO PRN (03:05)
[2024-12-24 04:04] LABS: BASOPHILS # (AUTO) 0.03 K/uL (0.00-0.20); BASOPHILS % (AUTO) 0.2 % (0.0-5.0); HEMATOCRIT 39.6 % (42-54); IMMATURE GRANULOCYTE ABSOLUTE 0.11 K/uL (0-1); LYMPHOCYTES # (AUTO) 1.5 K/uL (1.0-4.8); LYMPHOCYTES % (AUTO) 10.4 % (21.0-51.0); MEAN CORPUSCULAR HEMOGLOBIN 29.7 pg (27.0-33.0); MEAN CORPUSCULAR HGB CONC 33.6 g/dL (32.0-36.0); MEAN CORPUSCULAR VOLUME 88.4 fL (79-99); MONOCYTES % (AUTO) 7.2 % (3.0-13.0); NEUTROPHILS # (AUTO) 11.7 K/uL (1.8-7.7); NEUTROPHILS % (AUTO) 81.4 % (40.0-77.0); PLATELET COUNT (AUTO) 235 K/uL (130-400); RED BLOOD CELL COUNT(AUTO) 4.48 MIL/uL (4.50-6.20); RED CELL DISTRIBUTION WIDTH 14.3 % (11.0-15.5); WHITE BLOOD COUNT (AUTO) 14.3 K/uL (4.8-10.8)
[2024-12-24 04:19] LABS: ALBUMIN 3.2 g/dL (3.5-5.0); BILIRUBIN,TOTAL 0.9 mg/dL (0.2-1.0); CREATININE 0.8 mg/dL (0.5-1.3); POTASSIUM 3.7 mmol/L (3.5-5.1); TOTAL PROTEIN, SERUM 7.1 g/dL (6.0-8.3)
[2024-12-24 04:42] VITALS: BP 163/86; PULSE 115; RESP 17; TEMP 99.2
[2024-12-24 08:00] VITALS: BP 165/92; PULSE 116; RESP 18; TEMP 98.2; O2SAT 99
[2024-12-24] MEDS: PANTOPrazole 40 MG/VIAL IVP SCH (09:44)
[2024-12-24] MEDS: MAGNESIUM 2GM PREMIX 50ML 50 ML IV PRN (09:48)
[2024-12-24] MEDS ORDERED: METO25 PO (10:36)
[2024-12-24 12:00] VITALS: BP 143/81; PULSE 115; RESP 19; TEMP 98.3
--- NOTE | 2024-12-24 12:21 | PN ---
[facility] PROGRESS NOTE Date Patient Seen: Dec 24, 2024 Time of Visit: 12:07 Supervising Physician: [Dr Rivas Primary Care Physician: Dr. Hutchison Outpatient Specialists: [ ] Inpatient Consults: [Dr Rinaldi PROBLEM LIST: Sepsis without septic shock, POA Acute colitis, per CT abdomen Acute cholecystitis with CBD dilation for abdominal ultrasound, POA Acute intractable abdominal pain, POA Lactic acidosis Hepatic steatosis, POA Hypertension, POA DM type 2, with hyperglycemia, POA Morbid obesity, BMI of 45.2 POA Leukocytosis, POA Lactic acidosis, POA PLAN SUMMARY: Supplemental oxygen as needed Continue Zosyn Keep NPO Continue IV fluids Consult Dr. Rinaldi for acute cholecystitis Dispo: Home once medically stable for discharge INTERVAL HISTORY: [Patient was evaluated at bedside. 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 Continues with the abdominal discomfort. States starts in right lower quadrant and radiates to right upper quadrant as well as to epigastric region. He was associated bloating. His last meal was yesterday around noon repeat overnight notes, last bowel movement was last night in the ED and reported as normal. Patient states he recently started Mounjaro this past Monday and was due for repeat dose this Monday. His WBCs remain elevated, lactic acid is downtrending. CT of the abdomen reveals inflammatory changes to right colic gutter and right lower quadrant without abscess formation. His right upper quadrant ultrasound re vealed 6 mm common bile duct dilation without calculus, wall thickening or pericholecystic fluid. He continues on Zosyn and NS at 125 mL an hour. Currently NPO, pending blood culture results.] 12/24 - Patient is seen laying in bed resting quietly continues with right upper quadrant pain. Positive Biggs's sign. Patient had an HIDA scan and results suggest acute cholecystitis. Dr. Rinaldi has been consulted and currently pending evaluation and recommendations. No acute changes reported overnight. Vital signs are stable. Labs show patient continues with leukocytosis of 14.3. We will continue current antibiotics for now. We will await further recommendations from Dr. Rinaldi. REVIEW OF SYSTEMS: 12 point ROS reviewed with patient. Pertinent positives mentioned above. Otherwise negative. PHYSICAL EXAM: GENERAL: alert, weak, awake oriented x 3 HEENT: EOMI, Sclera non icteric, moist mucosa NECK: Supple, no JVD, trachea midline LUNGS: Clear breath sounds bilaterally. No wheezes HEART: Regular rate and rhythm. Normal S1 and S2, without murmurs ABD: Large abdomen, right upper quadrant tenderness on palpation EXT: No clubbing cyanosis or edema NEURO: Alert and oriented to person, follows commands Vital Signs (last 8hr) Date Time Temp Pulse Resp B/P (MAP) Pulse Ox O2 Delivery O2 Flow Rate FiO2 12/24/24 08:00 98.2 116 18 165/92 94 Room Air 12/24/24 04:42 99.1 115 17 163/86 93 LABS: Hematology Labs: Test 12/24/24 03:55 Range/Units White Blood Count 14.3 H 4.8-10.8 K/uL Red Blood Count 4.48 L 4.50-6.20 MIL/uL Hemoglobin 13.3 L 14.0-18.0 g/dL Hematocrit 39.6 L 42-54 % Mean Corpuscular Volume 88.4 79-99 fL Mean Corpuscular Hemoglobin 29.7 27.0-33.0 pg Mean Corpuscular Hemoglobin Concent 33.6 32.0-36.0 g/dL Red Cell Distribution Width 14.3 11.0-15.5 % Platelet Count 235 130-400 K/uL Mean Platelet Volume 8.9 7.5-10.5 fL Immature Granulocyte % (Auto) 0.8 0-1 % Neutrophils (%) (Auto) 81.4 H 40.0-77.0 % Lymphocytes (%) (Auto) 10.4 L 21.0-51.0 % Monocytes (%) (Auto) 7.2 3.0-13.0 % Eosinophils (%) (Auto) 0.0 0.0-8.0 % Basophils (%) (Auto) 0.2 0.0-5.0 % Neutrophils # (Auto) 11.7 H 1.8-7.7 K/uL Lymphocytes # (Auto) 1.5 1.0-4.8 K/uL Monocytes # (Auto) 1.0 0.1-1.0 K/uL Eosinophils # (Auto) 0.00 0.00-0.70 K/uL Basophils # (Auto) 0.03 0.00-0.20 K/uL Absolute Immature Granulocyte (auto 0.11 0-1 K/uL Nucleated Red Blood Cells 0.0 0.0-0.19 % Chemistry Labs: Test 12/24/24 11:57 12/24/24 03:55 12/23/24 05:25 12/22/24 18:31 Range/Units Whole Blood Glucose 135 H 70-110 MG/DL Sodium Level 134 L 136-145 mmol/L Potassium Level 3.7 3.5-5.1 mmol/L Chloride Level 101 101-111 mmol/L Carbon Dioxide Level 23 21-32 mmol/L Blood Urea Nitrogen 8 7-18 mg/dL Creatinine 0.8 0.5-1.3 mg/dL Glomerular Filtration Rate Calc 118 >90 mL/min Random Glucose 142 H 70-105 mg/dL Lactic Acid Level 1.2 0.8-2.5 mmol/L Total Calcium 8.7 8.5-10.1 mg/dL Total Bilirubin 0.9 0.2-1.0 mg/dL Aspartate Amino Transf (AST/SGOT) 12 10-37 U/L Alanine Aminotransferase (ALT/SGPT) 31 12-78 U/L Alkaline Phosphatase 70 50-136 U/L Total Protein 7.1 6.0-8.3 g/dL Albumin 3.2 L 3.5-5.0 g/dL Phosphorus Level 3.3 2.5-4.9 mg/dL Magnesium Level 1.60 L 1.80-2.40 mg/dL Total Creatine Kinase 207 # 21-232 U/L Procalcitonin 2.35 H 0.05-0.5 ng/mL Thyroid Stimulating Hormone (TSH) 1.20 0.36-3.74 uIU/mL Direct Bilirubin 0.1 0.0-0.3 mg/dL Troponin I High Sensitivity < 4 L 4-75 ng/L Lipase 28 16-77 U/L DIAGNOSTICS / RADIOLOGY RESULTS: [ ] PATIENT: MARYCRUZ CORDERO MR#: [id number] : 1990 SEX: M AGE: 34 LOCATION: [facility] ORDER 1038 STATUS: ADM IN REPORT#: [id number] SERVICE [id number] REASON: r/o acute chance ORDERING PHYSICIAN: DIMITRIS FERRIS PROCEDURE: HIDAWO - NM HIDA WO EF/CCK NM HIDA WO EF/CCK REASON: r/o acute chance COMPARISON: None TECHNIQUE: Routine imaging protocol was performed following injection of 7.5 mCi technetium 99m Choletec. 2 heavily imaging was performed as well. FINDINGS: There is prompt hepatic parenchymal uptake. There is prompt excretion into the common duct and small bowel. There is near complete clearing of hepatic activity by one hour. Gallbladder activity was not identified on the 1 hour image. 2 hour delay images also show no evidence of gallbladder activity. IMPRESSION: 1. No gallbladder activity through 2 hours, this can reflect acute cholecystitis in the appropriate clinical setting. 2. No evidence of common duct obstruction, the remainder of exam is unremarkable. DICTATED BY: THAO ESPINOZA MD DATE: 12/23/241844 ELECTRONICALLY SIGNED BY: THAO ESPINOZA MD DATE: 12/23/241847 PLAN NEURO: Minimize central acting medications as possible. Maintain fall precautions, adequate lighting during the day PULMONARY: Supplemental 02 as needed. Maintain aspiration precautions at all times CARDIOVASCULAR: Follow hemodynamics. Vital signs per facility protocol GI & NUTRITION: Continue with nutritional support. Continue stool softeners and laxatives as needed. KIDNEYS & ELECTROLYTES: Strict monitoring of intake, output and overall fluid balance. Avoid nephrotoxic medications to the extent possible. Medications to be dosed according to renal function. Monitor electrolytes and replace as needed ENDOCRINE: Maintain blood glucose between 100-180 at all times. Hypoglycemia protocol in place INFECTIOUS DISEASE: Trend temperature, WBC and procalcitonin level Follow cultures, deescalate antibiotics as soon as possible. Panculture if new onset fever ONCOLOGY/HEMATOLOGY/COAGULATION: Monitor for s/s of bleeding Monitor hemoglobin, coagulation studies as needed SKIN: Pressure ulcer prevention per facility protocol Specialty mattress ORTHO/REHAB: Continue PT/OT Prophylaxis: Continue GI and DVT prophylaxis Code Status: Full Resuscitation Disposition: Home ATTESTATION BY PHYSICIAN I have seen and examined the patient. I reviewed the documentation, medical decision making, and treatment plan as noted by the mid-level provider above. I agree with the findings and plan of care. Mine Rivas MD, ECTOR N NP Dec 24, 2024 12:21
[2024-12-24] MEDS: metoPROLOL tartRATE 25 MG TAB PO ONE (12:31)
--- NOTE | 2024-12-24 13:56 | CONS ---
GENERAL SURGERY CONSULTATION NOTE Date/Time Patient Seen: [December 24, 2024 ] Requesting Physician: [ BIS service] Reason for Consultation: [Right lower quadrant abdominal pain ] History of Present Illness: [Patient with a an acute onset of abdominal pain starting on Monday. Pain progressively gotten worse. Pain is located mostly in the right abdomen. Associated with the pain with some nausea. Patient also has indicated a possible subjective fevers. Pain got severe enough patient came in the emergency room. A CT scan was done when patient was in the emergency room. CT scan shows a disconnected tubelike structure in the right lower quadrant. Wit hin it this is a calcified support. This also significant amount of stranding around the right colon. This was my interpretation of the CT scan. I personally reviewed the CT scan myself. Patient denies any melena, hematochezia, hematuria. Patient indicates he had an appendectomy a couple of months ago. ] Past Medical History: [Morbid obesity, diabetes, ] Past Surgical History: [ Appendectomy] Family History: [Noncontributory ] Social History: [Patient denies any illicit drug use ] Habits: [Never] smoker. [Denies] alcohol consumption. [Denies] illicit drug use Current Medications Medications (Trade) Dose Ordered Sig/Liss Route Start Time Stop Time Status Last Admin Dose Admin Enoxaparin Sodium (Lovenox) 40 mg DAILY SQ 12/23/24 09:00 01/22/25 08:59 12/24/24 09:45 40 MG Ergocalciferol (Drisdol) 50,000 unit QWEEK PO 12/30/24 09:00 01/29/25 08:59 Home Med (Home Medication) (Atomoxetine HCl 1 CAP) HS PO 12/23/24 21:00 01/22/25 20:59 Home Med (Home Medication) (Levocetirizine Dihydrochloride 5 MG) HS PO 12/23/24 21:00 01/22/25 20:59 Insulin Human Regular (humuLIN R 100 UNIT/ML 3ML) INSULIN SLIDING SCAL... Q6H6 SQ 12/23/24 00:00 01/22/25 00:00 Lactated Ringer's 1,000 ml @ 125 mls/hr Q8H IV 12/23/24 00:00 12/23/24 10:28 DC 12/23/24 05:33 125 MLS/HR Metoprolol Tartrate (loprESSOR) 25 mg BID PO 12/24/24 21:00 01/23/25 20:59 Pantoprazole Sodium (PROTonix 40MG INJ) 40 mg DAILY IVP 12/24/24 09:00 01/23/25 08:59 12/24/24 09:44 40 MG Piperacillin Sod/ Tazobactam Sod 50 ml @ 200 mls/hr STAT STAT IVPB 12/22/24 18:56 12/22/24 19:10 DC 12/22/24 19:31 200 MLS/HR Piperacillin Sod/ Tazobactam Sod (Zosyn 3.375gm+NS 50ml) 3.375 gm Q8H IV 12/23/24 02:00 01/02/25 01:59 12/24/24 09:45 3.375 GM Sodium Chloride 1,000 ml @ 0 mls/hr Q0M IV 12/23/24 00:30 12/23/24 01:30 DC Sodium Chloride 1,000 ml @ 125 mls/hr Q8H IV 12/23/24 00:00 01/22/25 00:00 12/24/24 09:45 125 MLS/HR Review of Systems: CONST: [No fever, fatigue, or weight changes.] EYES: [No recent vision problems.] ENT: [No congestion, ear pain, or sore throat.] C/V: [No chest pain, palpitations, or edema.] RESP: [No cough, congestion, wheezing or shortness of breath.] GI: [No abdominal pain, nausea, vomiting, constipation, or diarrhea.] : [No incontinence or dysuria.] SKIN: [No rash.] NEURO: [No headache, focal numbness or weakness, dizziness, or seizures.] PSYCH: [No depression or anxiety.] HEME: [No abnormal bruising or bleeding.] LYMPH: [No swollen glands.] Physical Examination: PHYSICAL EXAM EYES: Sclera white HENT: Oral nasal mucosa pink and moist NECK: Supple, . LUNGS: Unlabored CARDIOVASCULAR: Regular rate and rhythm ABDOMEN: Tender to palpation right lower quadrant. No rebound. No peritoneal signs. CENTRAL NERVOUS SYSTEM: Awake, alert, oriented x3 SKIN: No rashes, no swelling. LYMPHATICS: No peripheral lymphadenopathy MUSCULOSKELETAL: Motor and sensory function grossly intact EXTREMITIES: No cyanosis or clubbing BACK: No deformity, no pressure ulcer. GENITOURINARY: No dysuria or hematuria Vital Signs (last 8hr) Date Time Temp Pulse Resp B/P (MAP) Pulse Ox O2 Delivery O2 Flow Rate FiO2 12/24/24 12:00 98.2 115 19 143/81 96 Room Air 12/24/24 08:00 98.2 116 18 165/92 94 Room Air Laboratory: [ ] Hematology Labs: Test 12/24/24 03:55 Range/Units White Blood Count 14.3 H 4.8-10.8 K/uL Red Blood Count 4.48 L 4.50-6.20 MIL/uL Hemoglobin 13.3 L 14.0-18.0 g/dL Hematocrit 39.6 L 42-54 % Mean Corpuscular Volume 88.4 79-99 fL Mean Corpuscular Hemoglobin 29.7 27.0-33.0 pg Mean Corpuscular Hemoglobin Concent 33.6 32.0-36.0 g/dL Red Cell Distribution Width 14.3 11.0-15.5 % Platelet Count 235 130-400 K/uL Mean Platelet Volume 8.9 7.5-10.5 fL Immature Granulocyte % (Auto) 0.8 0-1 % Neutrophils (%) (Auto) 81.4 H 40.0-77.0 % Lymphocytes (%) (Auto) 10.4 L 21.0-51.0 % Monocytes (%) (Auto) 7.2 3.0-13.0 % Eosinophils (%) (Auto) 0.0 0.0-8.0 % Basophils (%) (Auto) 0.2 0.0-5.0 % Neutrophils # (Auto) 11.7 H 1.8-7.7 K/uL Lymphocytes # (Auto) 1.5 1.0-4.8 K/uL Monocytes # (Auto) 1.0 0.1-1.0 K/uL Eosinophils # (Auto) 0.00 0.00-0.70 K/uL Basophils # (Auto) 0.03 0.00-0.20 K/uL Absolute Immature Granulocyte (auto 0.11 0-1 K/uL Nucleated Red Blood Cells 0.0 0.0-0.19 % Chemistry Labs: Test 12/24/24 11:57 12/24/24 03:55 12/23/24 05:25 12/22/24 18:31 Range/Units Whole Blood Glucose 135 H 70-110 MG/DL Sodium Level 134 L 136-145 mmol/L Potassium Level 3.7 3.5-5.1 mmol/L Chloride Level 101 101-111 mmol/L Carbon Dioxide Level 23 21-32 mmol/L Blood Urea Nitrogen 8 7-18 mg/dL Creatinine 0.8 0.5-1.3 mg/dL Glomerular Filtration Rate Calc 118 >90 mL/min Random Glucose 142 H 70-105 mg/dL Lactic Acid Level 1.2 0.8-2.5 mmol/L Total Calcium 8.7 8.5-10.1 mg/dL Total Bilirubin 0.9 0.2-1.0 mg/dL Aspartate Amino Transf (AST/SGOT) 12 10-37 U/L Alanine Aminotransferase (ALT/SGPT) 31 12-78 U/L Alkaline Phosphatase 70 50-136 U/L Total Protein 7.1 6.0-8.3 g/dL Albumin 3.2 L 3.5-5.0 g/dL Phosphorus Level 3.3 2.5-4.9 mg/dL Magnesium Level 1.60 L 1.80-2.40 mg/dL Total Creatine Kinase 207 # 21-232 U/L Procalcitonin 2.35 H 0.05-0.5 ng/mL Thyroid Stimulating Hormone (TSH) 1.20 0.36-3.74 uIU/mL Direct Bilirubin 0.1 0.0-0.3 mg/dL Troponin I High Sensitivity < 4 L 4-75 ng/L Lipase 28 16-77 U/L Diagnostics / Radiology: [Copy/Paste Echos/Imaging Report here] Assessment: [Patient with right lower quadrant abdominal pain. Patient has a history of appendectomy recently however they may have been a partial appendectomy done. I see a tubular structure with a calcified spot with severe amount of stranding. ] Plan: [ Patient may have had a partial appendectomy abdomen not too sure. This point in time recommend treating the patient conservatively with NPO, IV fluids, IV antibiotics. The patient's condition does not resolve in 24-48 hours patient may need an laparoscopic exploration with this was discussed with the patient and he indicates he understands.] BECKY GARCÍA MD Dec 24, 2024 13:56
--- NOTE | 2024-12-24 14:33 | NUR ---
DR. RICKY GARCÍA ROUNDED AT BEDSIDE. PER MD, NO SURGICAL INTERVENTION AT THIS TIME. CONTINUE WITH ABTX. CHANGE NS TO LR @ 125ML/HR. ORDERS PLACED AND CARRIED OUT. PRIMARY PROVIDER NOTIFIED. NO OTHER ORDERS GIVEN. WILL CONTINUE TO MONITOR.
[2024-12-24] MEDS: LACTATED RINGERS 1000ML 1,000 ML IV SCH (15:17)
[2024-12-24] MEDS ORDERED: PoTASSium chloRIDE 20MEQ/100ML 100 ML IV PRN (15:30)
[2024-12-24 16:00] VITALS: BP 144/80; PULSE 101; RESP 17; TEMP 98.8
[2024-12-24] MEDS: PoTASSium chl 10% ELIXIR 20MEQ 20 MEQ/15 ML UDCUP PO PRN (16:08)
[2024-12-24] MEDS: PoTASSium chloRIDE 20MEQ ER 20 MEQ ERTAB PO PRN (18:41)
[2024-12-24] MEDS: ceTIRIzine HCL 5 MG TABLET PO SCH (20:55)
[2024-12-24] MEDS: metoPROLOL tartRATE 25 MG TAB PO SCH (20:56)
[2024-12-24 21:05] VITALS: BP 153/73; PULSE 115; RESP 18; TEMP 99.3
[2024-12-25] VITALS (7 sets, daily range): BP systolic 124–147; BP diastolic 73–88; PULSE 86–109; RESP 17–20; TEMP 98.3–99.1; O2SAT 94
[2024-12-25 05:48] LABS: HEMATOCRIT 39.9 % (42-54); MEAN CORPUSCULAR HEMOGLOBIN 29.5 pg (27.0-33.0); MEAN CORPUSCULAR HGB CONC 33.1 g/dL (32.0-36.0); MEAN CORPUSCULAR VOLUME 89.3 fL (79-99); RED BLOOD CELL COUNT(AUTO) 4.47 MIL/uL (4.50-6.20); RED CELL DISTRIBUTION WIDTH 14.5 % (11.0-15.5); WHITE BLOOD COUNT (AUTO) 11.5 K/uL (4.8-10.8)
[2024-12-25 06:05] LABS: CREATININE 0.8 mg/dL (0.5-1.3); MAGNESIUM 2.2 mg/dL (1.80-2.40); PHOSPHORUS 1.6 mg/dL (2.5-4.9)
--- NOTE | 2024-12-25 11:55 | PN ---
[facility] PROGRESS NOTE Date Patient Seen: Dec 25, 2024 Time of Visit: 11:52 Supervising Physician: [Dr Rivas Primary Care Physician: Dr. Hutchison Outpatient Specialists: [ ] Inpatient Consults: [Dr Rinaldi PROBLEM LIST: Sepsis without septic shock, POA Acute colitis, per CT abdomen Acute cholecystitis with CBD dilation for abdominal ultrasound, POA Acute intractable abdominal pain, POA Lactic acidosis Hepatic steatosis, POA Hypertension, POA DM type 2, with hyperglycemia, POA Morbid obesity, BMI of 45.2 POA Leukocytosis, POA Lactic acidosis, POA PLAN SUMMARY: Supplemental oxygen as needed Continue Zosyn Keep NPO Continue IV fluids Follow Dr. Rinaldi recs Possible exploratory lap Dispo: Home once medically stable for discharge INTERVAL HISTORY: [Patient was evaluated at bedside. 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 Continues with the abdominal discomfort. States starts in right lower quadrant and radiates to right upper quadrant as well as to epigastric region. He was associated bloating. His last meal was yesterday around noon repeat overnight notes, last bowel movement was last night in the ED and reported as normal. Patient states he recently started Mounjaro this past Monday and was due for repeat dose this Monday. His WBCs remain elevated, lactic acid is downtrending. CT of the abdomen reveals inflammatory changes to right colic gutter and right lower quadrant without abscess formation. His right upper quadrant ultrasound revealed 6 mm common bile duct dilation without calculus, wall thickening or pericholecystic fluid. He continues on Zosyn and NS at 125 mL an hour. Currently NPO, pending blood culture results.] 12/24 - Patient is seen laying in bed resting quietly continues with right upper quadrant pain. Positive Biggs's sign. Patient had an HIDA scan and results suggest acute cholecystitis. Dr. Rinaldi has been consulted and currently pending evaluation and recommendations. No acute changes reported overnight. Vital signs are stable. Labs show patient continues with leukocytosis of 14.3. We will continue current antibiotics for now. We will await further recommendations from Dr. Rinaldi. 12/25 - patient is seen lying in bed resting quietly continues with abdominal pain more to the right side. He does report it is slowly improving in comparison to previous days. No acute changes reported overnight. Patient was evaluated by surgical team and recommendations to can treat patient conservatively with NPO, IV fluids and IV antibiotics. If the patient's condition does not improve in the left 24-48 hours patient may require laparoscopic exploration. We will continue current treatment plan for now. Patient continues with low-grade temperatures. White count continues trending down within normal limits. REVIEW OF SYSTEMS: 12 point ROS reviewed with patient. Pertinent positives mentioned above. Otherwise negative. PHYSICAL EXAM: GENERAL: alert, weak, awake oriented x 3 HEENT: EOMI, Sclera non icteric, moist mucosa NECK: Supple, no JVD, trachea midline LUNGS: Clear breath sounds bilaterally. No wheezes HEART: Regular rate and rhythm. Normal S1 and S2, without murmurs ABD: Large abdomen, right upper quadrant tenderness on palpation EXT: No clubbing cyanosis or edema NEURO: Alert and oriented to person, follows commands Vital Signs (last 8hr) Date Time Temp Pulse Resp B/P (MAP) Pulse Ox O2 Delivery O2 Flow Rate FiO2 12/25/24 08:00 98.2 103 18 144/80 94 Room Air 12/25/24 04:24 99.1 107 17 138/79 95 Room Air LABS: Hematology Labs: Test 12/25/24 05:40 12/24/24 03:55 Range/Units White Blood Count 11.5 H 4.8-10.8 K/uL Red Blood Count 4.47 L 4.50-6.20 MIL/uL Hemoglobin 13.2 L 14.0-18.0 g/dL Hematocrit 39.9 L 42-54 % Mean Corpuscular Volume 89.3 79-99 fL Mean Corpuscular Hemoglobin 29.5 27.0-33.0 pg Mean Corpuscular Hemoglobin Concent 33.1 32.0-36.0 g/dL Red Cell Distribution Width 14.5 11.0-15.5 % Platelet Count 236 130-400 K/uL Mean Platelet Volume 9.2 7.5-10.5 fL Nucleated Red Blood Cells 0.0 0.0-0.19 % Immature Granulocyte % (Auto) 0.8 0-1 % Neutrophils (%) (Auto) 81.4 H 40.0-77.0 % Lymphocytes (%) (Auto) 10.4 L 21.0-51.0 % Monocytes (%) (Auto) 7.2 3.0-13.0 % Eosinophils (%) (Auto) 0.0 0.0-8.0 % Basophils (%) (Auto) 0.2 0.0-5.0 % Neutrophils # (Auto) 11.7 H 1.8-7.7 K/uL Lymphocytes # (Auto) 1.5 1.0-4.8 K/uL Monocytes # (Auto) 1.0 0.1-1.0 K/uL Eosinophils # (Auto) 0.00 0.00-0.70 K/uL Basophils # (Auto) 0.03 0.00-0.20 K/uL Absolute Immature Granulocyte (auto 0.11 0-1 K/uL Chemistry Labs: Test 12/25/24 11:27 12/25/24 05:40 12/24/24 03:55 Range/Units Whole Blood Glucose 109 70-110 MG/DL Sodium Level 136 136-145 mmol/L Potassium Level 4.0 3.5-5.1 mmol/L Chloride Level 102 101-111 mmol/L Carbon Dioxide Level 25 21-32 mmol/L Blood Urea Nitrogen 6 L 7-18 mg/dL Creatinine 0.8 0.5-1.3 mg/dL Glomerular Filtration Rate Calc 118 >90 mL/min Random Glucose 114 H 70-105 mg/dL Total Calcium 8.9 8.5-10.1 mg/dL Phosphorus Level 1.6 L 2.5-4.9 mg/dL Magnesium Level 2.20 1.80-2.40 mg/dL Procalcitonin 1.21 H 0.05-0.5 ng/mL Lactic Acid Level 1.2 0.8-2.5 mmol/L Total Bilirubin 0.9 0.2-1.0 mg/dL Aspartate Amino Transf (AST/SGOT) 12 10-37 U/L Alanine Aminotransferase (ALT/SGPT) 31 12-78 U/L Alkaline Phosphatase 70 50-136 U/L Total Protein 7.1 6.0-8.3 g/dL Albumin 3.2 L 3.5-5.0 g/dL DIAGNOSTICS / RADIOLOGY RESULTS: [ ] PLAN NEURO: Minimize central acting medications as possible. Maintain fall precautions, adequate lighting during the day PULMONARY: Supplemental 02 as needed. Maintain aspiration precautions at all times CARDIOVASCULAR: Follow hemodynamics. Vital signs per facility protocol GI & NUTRITION: Continue with nutritional support. Continue stool softeners and laxatives as needed. KIDNEYS & ELECTROLYTES: Strict monitoring of intake, output and overall fluid balance. Avoid nephrotoxic medications to the extent possible. Medications to be dosed according to renal function. Monitor electrolytes and replace as needed ENDOCRINE: Maintain blood glucose between 100-180 at all times. Hypoglycemia protocol in place INFECTIOUS DISEASE: Trend temperature, WBC and procalcitonin level Follow cultures, deescalate antibiotics as soon as possible. Panculture if new onset fever ONCOLOGY/HEMATOLOGY/COAGULATION: Monitor for s/s of bleeding Monitor hemoglobin, coagulation studies as needed SKIN: Pressure ulcer prevention per facility protocol Specialty mattress ORTHO/REHAB: Continue PT/OT Prophylaxis: Continue GI and DVT prophylaxis Code Status: Full Resuscitation Disposition: Home ATTESTATION BY PHYSICIAN I have seen and examined the patient. I reviewed the documentation, medical decision making, and treatment plan as noted by the mid-level provider above. I agree with the findings and plan of care. Mine Rivas MD, ECTOR N KELLY Dec 25, 2024 11:55
--- NOTE | 2024-12-25 15:26 | PN ---
GENERAL SURGERY PROGRESS NOTE Date/Time Patient Seen: [December 25, 2024] Problem List: [ Right lower quadrant abdominal pain] Interval History: [ Patient indicates his pain has improved. Patient still has some discomfort but the pain has improved. Patient admits to flatus. Denies any bowel function.] Current Medications Medications (Trade) Dose Ordered Sig/Liss Route Start Time Stop Time Status Last Admin Dose Admin Cetirizine HCl (ZYRtec 5 MG TABLET) 5 mg HS PO 12/24/24 21:00 01/23/25 20:59 12/24/24 20:55 5 MG Enoxaparin Sodium (Lovenox) 40 mg DAILY SQ 12/23/24 09:00 01/22/25 08:59 12/25/24 08:42 40 MG Ergocalciferol (Drisdol) 50,000 unit QWEEK PO 12/30/24 09:00 01/29/25 08:59 Home Med (Home Medication) (Atomoxetine HCl 1 CAP) HS PO 12/23/24 21:00 01/22/25 20:59 Home Med (Home Medication) (Levocetirizine Dihydrochloride 5 MG) HS PO 12/23/24 21:00 12/24/24 20:12 DC Insulin Human Regular (humuLIN R 100 UNIT/ML 3ML) INSULIN SLIDING SCAL... Q6H6 SQ 12/23/24 00:00 01/22/25 00:00 Lactated Ringer's 1,000 ml @ 125 mls/hr Q8H IV 12/23/24 00:00 12/23/24 10:28 DC 12/23/24 05:33 125 MLS/HR Lactated Ringer's 1,000 ml @ 125 mls/hr Q8H IV 12/24/24 15:00 01/23/25 14:59 12/25/24 00:04 125 MLS/HR Metoprolol Tartrate (loprESSOR) 25 mg BID PO 12/24/24 21:00 01/23/25 20:59 12/25/24 08:42 25 MG Pantoprazole Sodium (PROTonix 40MG INJ) 40 mg DAILY IVP 12/24/24 09:00 01/23/25 08:59 12/25/24 08:42 40 MG Piperacillin Sod/ Tazobactam Sod 50 ml @ 200 mls/hr STAT STAT IVPB 12/22/24 18:56 12/22/24 19:10 DC 12/22/24 19:31 200 MLS/HR Piperacillin Sod/ Tazobactam Sod (Zosyn 3.375gm+NS 50ml) 3.375 gm Q8H IV 12/23/24 02:00 01/02/25 01:59 12/25/24 08:42 3.375 GM Sodium Chloride 1,000 ml @ 0 mls/hr Q0M IV 12/23/24 00:30 12/23/24 01:30 DC Sodium Chloride 1,000 ml @ 125 mls/hr Q8H IV 12/23/24 00:00 12/24/24 15:02 DC 12/24/24 09:45 125 MLS/HR Physical Examination: Awake, alert, oriented x3 Unlabored Regular rate and rhythm Abdomen soft, minimal discomfort on deep palpation right lower quadrant. No rebound. No peritoneal signs. Vital Signs (last 8hr) Date Time Temp Pulse Resp B/P (MAP) Pulse Ox O2 Delivery O2 Flow Rate FiO2 12/25/24 12:00 98.6 98 19 139/86 94 Room Air 12/25/24 08:00 98.2 103 18 144/80 94 Room Air Laboratory: [ ] Hematology Labs: Test 12/25/24 05:40 12/24/24 03:55 Range/Units White Blood Count 11.5 H 4.8-10.8 K/uL Red Blood Count 4.47 L 4.50-6.20 MIL/uL Hemoglobin 13.2 L 14.0-18.0 g/dL Hematocrit 39.9 L 42-54 % Mean Corpuscular Volume 89.3 79-99 fL Mean Corpuscular Hemoglobin 29.5 27.0-33.0 pg Mean Corpuscular Hemoglobin Concent 33.1 32.0-36.0 g/dL Red Cell Distribution Width 14.5 11.0-15.5 % Platelet Count 236 130-400 K/uL Mean Platelet Volume 9.2 7.5-10.5 fL Nucleated Red Blood Cells 0.0 0.0-0.19 % Immature Granulocyte % (Auto) 0.8 0-1 % Neutrophils (%) (Auto) 81.4 H 40.0-77.0 % Lymphocytes (%) (Auto) 10.4 L 21.0-51.0 % Monocytes (%) (Auto) 7.2 3.0-13.0 % Eosinophils (%) (Auto) 0.0 0.0-8.0 % Basophils (%) (Auto) 0.2 0.0-5.0 % Neutrophils # (Auto) 11.7 H 1.8-7.7 K/uL Lymphocytes # (Auto) 1.5 1.0-4.8 K/uL Monocytes # (Auto) 1.0 0.1-1.0 K/uL Eosinophils # (Auto) 0.00 0.00-0.70 K/uL Basophils # (Auto) 0.03 0.00-0.20 K/uL Absolute Immature Granulocyte (auto 0.11 0-1 K/uL Chemistry Labs: Test 12/25/24 11:27 12/25/24 05:40 12/24/24 03:55 Range/Units Whole Blood Glucose 109 70-110 MG/DL Sodium Level 136 136-145 mmol/L Potassium Level 4.0 3.5-5.1 mmol/L Chloride Level 102 101-111 mmol/L Carbon Dioxide Level 25 21-32 mmol/L Blood Urea Nitrogen 6 L 7-18 mg/dL Creatinine 0.8 0.5-1.3 mg/dL Glomerular Filtration Rate Calc 118 >90 mL/min Random Glucose 114 H 70-105 mg/dL Total Calcium 8.9 8.5-10.1 mg/dL Phosphorus Level 1.6 L 2.5-4.9 mg/dL Magnesium Level 2.20 1.80-2.40 mg/dL Procalcitonin 1.21 H 0.05-0.5 ng/mL Lactic Acid Level 1.2 0.8-2.5 mmol/L Total Bilirubin 0.9 0.2-1.0 mg/dL Aspartate Amino Transf (AST/SGOT) 12 10-37 U/L Alanine Aminotransferase (ALT/SGPT) 31 12-78 U/L Alkaline Phosphatase 70 50-136 U/L Total Protein 7.1 6.0-8.3 g/dL Albumin 3.2 L 3.5-5.0 g/dL Diagnostics / Radiology: [Copy/Paste Echos/Imaging Report here] Impression and Plan: [Colitis appears to be improving with conservative management. Continue IV antibiotics. Continue NPO for now. I am okay if patient's starts clear liquids tomorrow. Ambulate. Pulmonary toilet. ] BECKY GARCÍA MD Dec 25, 2024 15:26
[2024-12-26 04:20] VITALS: BP 160/71; PULSE 91; RESP 18; TEMP 98.1
[2024-12-26 06:58] LABS: HEMATOCRIT 38.9 % (42-54); MEAN CORPUSCULAR HEMOGLOBIN 29.5 pg (27.0-33.0); MEAN CORPUSCULAR HGB CONC 33.4 g/dL (32.0-36.0); MEAN CORPUSCULAR VOLUME 88.4 fL (79-99); RED BLOOD CELL COUNT(AUTO) 4.4 MIL/uL (4.50-6.20); RED CELL DISTRIBUTION WIDTH 14.5 % (11.0-15.5); WHITE BLOOD COUNT (AUTO) 10.3 K/uL (4.8-10.8)
[2024-12-26 07:10] LABS: CREATININE 0.8 mg/dL (0.5-1.3); POTASSIUM 3.7 mmol/L (3.5-5.1)
[2024-12-26 08:00] VITALS: BP 136/88; PULSE 97; RESP 19; TEMP 98; O2SAT 93
[2024-12-26 12:00] VITALS: BP 146/86; PULSE 107; RESP 19; TEMP 98
--- NOTE | 2024-12-26 12:17 | PN ---
[facility] PROGRESS NOTE Date Patient Seen: Dec 26, 2024 Time of Visit: 12:14 Supervising Physician: Dr Cisneros Primary Care Physician: Dr. Hutchison Outpatient Specialists: [ ] Inpatient Consults: [Dr Rinaldi PROBLEM LIST: Sepsis without septic shock, POA resolved Acute colitis, per CT abdomen Acute cholecystitis with CBD dilation for abdominal ultrasound, POA Acute intractable abdominal pain, POA improving Lactic acidosis resolved Hepatic steatosis, POA Hypertension, POA DM type 2, with hyperglycemia, POA Morbid obesity, BMI of 45.2 POA Leukocytosis, POA Lactic acidosis, POA PLAN SUMMARY: Supplemental oxygen as needed Continue Zosyn Advance diet as tolerates Follow Dr. Rinaldi recs Possible exploratory lap Dispo: Home once medically stable for discharge INTERVAL HISTORY: [Patient was evaluated at bedside. He was admitted for evaluation of abdominal pain associated with nausea 30 minutes [employer]. Patient states his pain was 8/10 prior to admission now improved to 1/10 with pain medication. Continues with the abdominal discomfort. States starts in right lower quadrant and radiates to right upper quadrant as well as to epigastric region. He was associated bloating. His last meal was yesterday around noon repeat overnight notes, last bowel movement was last night in the ED and reported as normal. Patient states he recently started Mounjaro this past Monday and was due for repeat dose this Monday. His WBCs remain elevated, lactic acid is downtrending. CT of the abdomen reveals inflammatory changes to right colic gutter and right lower quadrant without abscess formation. His right upper quadrant ultrasound revealed 6 mm common bile duct dilation without calculus, wall thickening or pericholecystic fluid. He continues on Zosyn and NS at 125 mL an hour. Currently NPO, pending blood culture results.] 12/24 - Patient is seen laying in bed resting quietly continues with right upper quadrant pain. Positive Biggs's sign. Patient had an HIDA scan and results suggest acute cholecystitis. Dr. Rinaldi has been consulted and currently pending evaluation and recommendations. No acute changes reported overnight. Vital signs are stable. Labs show patient continues with leukocytosis of 14.3. We will continue current antibiotics for now. We will await further recommendations from Dr. Rinaldi. 12/25 - patient is seen lying in bed resting quietly continues with abdominal pain more to the right side. He does report it is slowly improving in comparison to previous days. No acute changes reported overnight. Patient was evaluated by surgical team and recommendations to can treat patient conservatively with NPO, IV fluids and IV antibiotics. If the patient's condition does not improve in the left 24-48 hours patient may require laparoscopic exploration. We will continue current treatment plan for now. Patient continues with low-grade tem peratures. White count continues trending down within normal limits. 12/26 - patient is seen sitting up in bed does not appear to be in any acute distress at this time. Patient reports his abdominal pain continues to improve. Patient was started on clear liquid diet and advanced to soft solids and does far tolerating well without nausea, vomiting or worsening abdominal pain. No a cute changes reported overnight. Patient reports flatus and had a bowel movement yesterday afternoon. Patient was seen by surgical team and recommend to continue conservative management with IV antibiotics. Patient has been encouraged to ambulate t.i.d.. Vital signs are stable. Labs show white count trending down towards normal limits. We will continue current treatment plan for now. Plan to DC home in the next 24-48 hours. REVIEW OF SYSTEMS: 12 point ROS reviewed with patient. Pertinent positives mentioned above. Otherwise negative. PHYSICAL EXAM: GENERAL: alert, weak, awake oriented x 3 HEENT: EOMI, Sclera non icteric, moist mucosa NECK: Supple, no JVD, trachea midline LUNGS: Clear breath sounds bilaterally. No wheezes HEART: Regular rate and rhythm. Normal S1 and S2, without murmurs ABD: Large abdomen, right upper quadrant tenderness on palpation EXT: No clubbing cyanosis or edema NEURO: Alert and oriented to person, follows commands Vital Signs (last 8hr) Date Time Temp Pulse Resp B/P (MAP) Pulse Ox O2 Delivery O2 Flow Rate FiO2 12/26/24 08:00 98.1 97 19 136/88 93 Room Air 12/26/24 04:20 98.1 91 18 160/71 97 Room Air LABS: Hematology Labs: Test 12/26/24 06:46 Range/Units White Blood Count 10.3 4.8-10.8 K/uL Red Blood Count 4.40 L 4.50-6.20 MIL/uL Hemoglobin 13.0 L 14.0-18.0 g/dL Hematocrit 38.9 L 42-54 % Mean Corpuscular Volume 88.4 79-99 fL Mean Corpuscular Hemoglobin 29.5 27.0-33.0 pg Mean Corpuscular Hemoglobin Concent 33.4 32.0-36.0 g/dL Red Cell Distribution Width 14.5 11.0-15.5 % Platelet Count 280 130-400 K/uL Mean Platelet Volume 9.0 7.5-10.5 fL Nucleated Red Blood Cells 0.0 0.0-0.19 % Chemistry Labs: Test 12/26/24 11:38 12/26/24 06:46 12/25/24 05:40 Range/Units Whole Blood Glucose 126 H 70-110 MG/DL Sodium Level 138 136-145 mmol/L Potassium Level 3.7 3.5-5.1 mmol/L Chloride Level 103 101-111 mmol/L Carbon Dioxide Level 26 21-32 mmol/L Blood Urea Nitrogen 11 7-18 mg/dL Creatinine 0.8 0.5-1.3 mg/dL Glomerular Filtration Rate Calc 118 >90 mL/min Random Glucose 112 H 70-105 mg/dL Total Calcium 8.6 8.5-10.1 mg/dL Phosphorus Level 1.6 L 2.5-4.9 mg/dL Magnesium Level 2.20 1.80-2.40 mg/dL Procalcitonin 1.21 H 0.05-0.5 ng/mL DIAGNOSTICS / RADIOLOGY RESULTS: [ ] PLAN NEURO: Minimize central acting medications as possible. Maintain fall precautions, adequate lighting during the day PULMONARY: Supplemental 02 as needed. Maintain aspiration precautions at all times CARDIOVASCULAR: Follow hemodynamics. Vital signs per facility protocol GI & NUTRITION: Continue with nutritional support. Continue stool softeners and laxatives as needed. KIDNEYS & ELECTROLYTES: Strict monitoring of intake, output and overall fluid balance. Avoid nephrotoxic medications to the extent possible. Medications to be dosed according to renal function. Monitor electrolytes and replace as needed ENDOCRINE: Maintain blood glucose between 100-180 at all times. Hypoglycemia protocol in place INFECTIOUS DISEASE: Trend temperature, WBC and procalcitonin level Follow cultures, deescalate antibiotics as soon as possible. Panculture if new onset fever ONCOLOGY/HEMATOLOGY/COAGULATION: Monitor for s/s of bleeding Monitor hemoglobin, coagulation studies as needed SKIN: Pressure ulcer prevention per facility protocol Specialty mattress ORTHO/REHAB: Continue PT/OT Prophylaxis: Continue GI and DVT prophylaxis Code Status: Full Resuscitation Disposition: Home ATTESTATION BY PHYSICIAN I reviewed the documentation, medical decision making, and treatment plan as noted by the mid-level provider above. I agree with the findings and plan of care. Dino Cisneros MD, ECTOR N KELLY Dec 26, 2024 12:16
--- NOTE | 2024-12-26 15:56 | PN ---
GENERAL SURGERY PROGRESS NOTE Date/Time Patient Seen: [December 26, 2024 ] Problem List: [ Right lower quadrant abdominal pain] Interval History: [Pain has significantly improved. Patient is ambulating. Positive flatus..] Current Medications Medications (Trade) Dose Ordered Sig/Liss Route Start Time Stop Time Status Last Admin Dose Admin Cetirizine HCl (ZYRtec 5 MG TABLET) 5 mg HS PO 12/24/24 21:00 01/23/25 20:59 12/25/24 21:30 5 MG Enoxaparin Sodium (Lovenox) 40 mg DAILY SQ 12/23/24 09:00 01/22/25 08:59 12/26/24 08:39 40 MG Ergocalciferol (Drisdol) 50,000 unit QWEEK PO 12/30/24 09:00 01/29/25 08:59 Home Med (Home Medication) (Atomoxetine HCl 1 CAP) HS PO 12/23/24 21:00 01/22/25 20:59 Home Med (Home Medication) (Levocetirizine Dihydrochloride 5 MG) HS PO 12/23/24 21:00 12/24/24 20:12 DC Insulin Human Regular (humuLIN R 100 UNIT/ML 3ML) INSULIN SLIDING SCAL... Q6H6 SQ 12/23/24 00:00 01/22/25 00:00 Lactated Ringer's 1,000 ml @ 125 mls/hr Q8H IV 12/23/24 00:00 12/23/24 10:28 DC 12/23/24 05:33 125 MLS/HR Lactated Ringer's 1,000 ml @ 125 mls/hr Q8H IV 12/24/24 15:00 01/23/25 14:59 12/26/24 00:04 125 MLS/HR Metoprolol Tartrate (loprESSOR) 25 mg BID PO 12/24/24 21:00 01/23/25 20:59 12/26/24 08:37 25 MG Pantoprazole Sodium (PROTonix 40MG INJ) 40 mg DAILY IVP 12/24/24 09:00 01/23/25 08:59 12/26/24 08:37 40 MG Piperacillin Sod/ Tazobactam Sod 50 ml @ 200 mls/hr STAT STAT IVPB 12/22/24 18:56 12/22/24 19:10 DC 12/22/24 19:31 200 MLS/HR Piperacillin Sod/ Tazobactam Sod (Zosyn 3.375gm+NS 50ml) 3.375 gm Q8H IV 12/23/24 02:00 01/02/25 01:59 12/26/24 08:37 3.375 GM Sodium Chloride 1,000 ml @ 0 mls/hr Q0M IV 12/23/24 00:30 12/23/24 01:30 DC Sodium Chloride 1,000 ml @ 125 mls/hr Q8H IV 12/23/24 00:00 12/24/24 15:02 DC 12/24/24 09:45 125 MLS/HR Physical Examination: Awake, alert, oriented x3 Unlabored Regular rate and rhythm Abdomen soft, nontender, nondistended Vital Signs (last 8hr) Date Time Temp Pulse Resp B/P (MAP) Pulse Ox O2 Delivery O2 Flow Rate FiO2 12/26/24 12:00 98.1 107 19 146/86 93 Room Air 12/26/24 08:00 93 Room Air* 0 21 12/26/24 08:00 98.1 97 19 136/88 93 Room Air Laboratory: [ ] Hematology Labs: Test 12/26/24 06:46 Range/Units White Blood Count 10.3 4.8-10.8 K/uL Red Blood Count 4.40 L 4.50-6.20 MIL/uL Hemoglobin 13.0 L 14.0-18.0 g/dL Hematocrit 38.9 L 42-54 % Mean Corpuscular Volume 88.4 79-99 fL Mean Corpuscular Hemoglobin 29.5 27.0-33.0 pg Mean Corpuscular Hemoglobin Concent 33.4 32.0-36.0 g/dL Red Cell Distribution Width 14.5 11.0-15.5 % Platelet Count 280 130-400 K/uL Mean Platelet Volume 9.0 7.5-10.5 fL Nucleated Red Blood Cells 0.0 0.0-0.19 % Chemistry Labs: Test 12/26/24 15:18 12/26/24 06:46 12/25/24 05:40 Range/Units Whole Blood Glucose 127 H 70-110 MG/DL Sodium Level 138 136-145 mmol/L Potassium Level 3.7 3.5-5.1 mmol/L Chloride Level 103 101-111 mmol/L Carbon Dioxide Level 26 21-32 mmol/L Blood Urea Nitrogen 11 7-18 mg/dL Creatinine 0.8 0.5-1.3 mg/dL Glomerular Filtration Rate Calc 118 >90 mL/min Random Glucose 112 H 70-105 mg/dL Total Calcium 8.6 8.5-10.1 mg/dL Phosphorus Level 1.6 L 2.5-4.9 mg/dL Magnesium Level 2.20 1.80-2.40 mg/dL Procalcitonin 1.21 H 0.05-0.5 ng/mL Diagnostics / Radiology: [Copy/Paste Echos/Imaging Report here] Impression and Plan: [Colitis appears to be improving with conservative management. Continue IV antibiotics. We will start patient on clear liquids. If patient's pain is okay then could theoretically advance patient's diet tomorrow day after. Patient may need to be discharged home on oral antibiotics when it reaches that point. ] BECKY GARCÍA MD Dec 26, 2024 15:56
[2024-12-26 16:00] VITALS: BP 128/75; PULSE 92; RESP 19; TEMP 98.8
[2024-12-26] MEDS: INSULIN humuLIN R 100 UNIT/ML 3ML SQ SCH (21:00)
[2024-12-26 21:10] VITALS: O2SAT 93
--- NOTE | 2024-12-26 21:10 | NUR ---
MEDS SHIFT ASSESSMENT DONE, PLEASE REFER TO CHART. DUE MEDS ADMINISTERED, TOLERATED WELL. KEPT RESTED AND COMFORTABLE IN BED. CALL LIGHT WITHIN REACH.
[2024-12-26 22:19] VITALS: BP 136/78; PULSE 103; RESP 19; TEMP 98.4
[2024-12-27 01:55] VITALS: BP 146/79; PULSE 102; RESP 18; TEMP 98.6
[2024-12-27 04:31] VITALS: BP 133/74; PULSE 92; RESP 19; TEMP 98.8
--- NOTE | 2024-12-27 05:37 | NUR ---
ROUNDS PT RESTING WELL, NO DISTRESS NOTED. NO CONCERNS VERBALIZED. PT SLEPT AT INTERVALS DURING THE SHIFT. KEPT RESTED AND COMFORTABLE. FOR MORE CARE.
[2024-12-27 06:31] LABS: HEMATOCRIT 38.3 % (42-54); MEAN CORPUSCULAR HEMOGLOBIN 29.5 pg (27.0-33.0); MEAN CORPUSCULAR HGB CONC 32.6 g/dL (32.0-36.0); MEAN CORPUSCULAR VOLUME 90.3 fL (79-99); RED BLOOD CELL COUNT(AUTO) 4.24 MIL/uL (4.50-6.20); RED CELL DISTRIBUTION WIDTH 14.6 % (11.0-15.5); WHITE BLOOD COUNT (AUTO) 8.7 K/uL (4.8-10.8)
[2024-12-27 06:51] LABS: CREATININE 0.8 mg/dL (0.5-1.3); POTASSIUM 3.7 mmol/L (3.5-5.1)
[2024-12-27 08:00] VITALS: BP 156/90; PULSE 98; RESP 19; TEMP 97.6
[2024-12-27 09:15] VITALS: O2SAT 99
[2024-12-27] MEDS ORDERED: AMOX1TAB16 PO (10:40)
--- NOTE | 2024-12-27 10:50 | DS ---
[facility] DISCHARGE SUMMARY Date Patient Seen: Dec 27, 2024 Time of Visit: 10:41 Supervising Physician: [Dr Cisneros Primary Care Physician: Dr. Hutchison Outpatient Specialists: [ ] Inpatient Consults: [Dr Rinaldi PROBLEM LIST: Sepsis without septic shock, POA resolved Acute colitis, per CT abdomen poa resolved Acute cholecystitis with CBD dilation for abdominal ultrasound, POA- Acute intractable abdominal pain, POA resolved Lactic acidosis resolved Hepatic steatosis, POA Hypertension, POA DM type 2, with hyperglycemia, POA Morbid obesity, BMI of 45.2 POA Leukocytosis, POA Lactic acidosis, POA HOSPITAL COURSE: HPI (per admitting provider) Patient was admitted for abdominal pain and was found to have sepsis without septic shock and acute colitis. Patient was treated with broad-spectrum antibiotics and IV fluids and responded well. HIDA scan showed possible acute cholecystitis. Patient was evaluated by General surgery and recommended conservative management and no plans for surgical intervention at this time. Patient was started clear liquid diet and advanced to GI soft diet and tolerated well. Nausea and abdominal pain has resolved. Patient to follow up with PCP in the next 1-2 days. Patient to follow up with Dr. Rinaldi in 1 week if abdominal pain returns. Patient to continue oral antibiotics as prescribed. The patient was treated for the following problems: Sepsis without septic shock, POA resolved Acute colitis, per CT abdomen poa resolved Acute cholecystitis with CBD dilation for abdominal ultrasound, POA- Acute intractable abdominal pain, POA resolved Lactic acidosis resolved Hepatic steatosis, POA Hypertension, POA DM type 2, with hyperglycemia, POA Morbid obesity, BMI of 45.2 POA Leukocytosis, POA Lactic acidosis, POA ACTIVE PROBLEM LIST FOR THE HOSPITALIZATION: CHRONIC PROBLEMS: continue previous management per PCP unless otherwise indicated ENT NURSE FINDINGS/RECOMMENDATIONS: [ ] PROCEDURES: as mentioned above DISCHARGE MEDICATIONS: See DC med rec Pt hemodynamically stable and afebrile at time of discharge. PCP notified of patients admission, hospital course and discharge. New Medications: Amoxicillin/Potassium Clav (Amox Tr-K Clv 875-125 mg Tab) 875 Mg-125 Mg Tablet 1 TAB PO BID for 10 Days, #20 TAB 0 Refills Continued Medications: Atomoxetine HCl (Atomoxetine HCl) 100 Mg Capsule 1 CAP PO HS Ergocalciferol (Vitamin D2) (Vitamin D2) 1,250 Mcg (92713 Unit) Capsule 1 TAB PO QWEEK Hyoscyamine Sulfate (Hyoscyamine Sulfate) 0.125 Mg Tab.rapdis 1 TAB SL QIDP PRN for indigestion Levocetirizine Dihydrochloride (Levocetirizine Dihydrochloride) 5 Mg Tablet 5 MG PO HS, TAB Lisinopril (Lisinopril) 10 Mg Tablet 1 TAB PO HS for 30 Days, #30 TAB 0 Refills Metformin HCl (Metformin HCl) 1,000 Mg Tablet 1 TAB PO DAILY Metoprolol Tartrate (Lopressor) 25 Mg Tab 1 TAB PO BID Venlafaxine HCl (Venlafaxine HCl ER) 75 Mg Cap.er.24h 75 MG PO HS, CAPSULE. PHYSICAL EXAM: GENERAL: alert, weak, awake oriented x 3 HEENT: EOMI, Sclera non icteric, moist mucosa NECK: Supple, no JVD, trachea midline LUNGS: Clear breath sounds bilaterally. No wheezes HEART: Regular rate and rhythm. Normal S1 and S2, without murmurs ABD: Large abdomen, nontender x4 quadrants EXT: No clubbing cyanosis or edema NEURO: Alert and oriented to person, follows commands FOLLOW-UP: Follow-up with PCP in 2-3 days Follow up with Dr. Rinaldi in 1 week RECOMMENDATIONS: See Discharge Instructions This case was seen and discussed with my supervising physician. More than 30 minutes spent on discharge process, including evaluation of the patient, discussion with nursing staff, medication reconciliation and follow-up appointments ATTESTATION BY PHYSICIAN I reviewed the documentation, medical decision making, and treatment plan as noted by the mid-level provider above. I agree with the findings and plan of care. Dino Cisneros MD, ECTOR N KELLY Dec 27, 2024 10:50
[2024-12-27 12:00] VITALS: BP 134/85; PULSE 92; RESP 19; TEMP 98.3
--- NOTE | 2024-12-27 13:01 | PN ---
GENERAL SURGERY PROGRESS NOTE Date/Time Patient Seen: [December 27, 2024 ] Problem List: [ Right lower quadrant abdominal pain] Interval History: [Patient denies any pain. Tolerating a regular diet. Having bowel function.] Current Medications Medications (Trade) Dose Ordered Sig/Liss Route Start Time Stop Time Status Last Admin Dose Admin Cetirizine HCl (ZYRtec 5 MG TABLET) 5 mg HS PO 12/24/24 21:00 01/23/25 20:59 12/26/24 21:10 5 MG Enoxaparin Sodium (Lovenox) 40 mg DAILY SQ 12/23/24 09:00 01/22/25 08:59 12/27/24 09:04 40 MG Ergocalciferol (Drisdol) 50,000 unit QWEEK PO 12/30/24 09:00 01/29/25 08:59 Home Med (Home Medication) (Atomoxetine HCl 1 CAP) HS PO 12/23/24 21:00 01/22/25 20:59 Home Med (Home Medication) (Levocetirizine Dihydrochloride 5 MG) HS PO 12/23/24 21:00 12/24/24 20:12 DC Insulin Human Regular (humuLIN R 100 UNIT/ML 3ML) INSULIN SLIDING SCAL... ACHS SQ 12/26/24 21:00 01/25/25 20:59 Insulin Human Regular (humuLIN R 100 UNIT/ML 3ML) INSULIN SLIDING SCAL... Q6H6 SQ 12/23/24 00:00 12/26/24 19:38 DC Lactated Ringer's 1,000 ml @ 125 mls/hr Q8H IV 12/23/24 00:00 12/23/24 10:28 DC 12/23/24 05:33 125 MLS/HR Lactated Ringer's 1,000 ml @ 125 mls/hr Q8H IV 12/24/24 15:00 01/23/25 14:59 12/27/24 10:18 125 MLS/HR Metoprolol Tartrate (loprESSOR) 25 mg BID PO 12/24/24 21:00 01/23/25 20:59 12/27/24 09:04 25 MG Pantoprazole Sodium (PROTonix 40MG INJ) 40 mg DAILY IVP 12/24/24 09:00 01/23/25 08:59 12/27/24 09:04 40 MG Piperacillin Sod/ Tazobactam Sod 50 ml @ 200 mls/hr STAT STAT IVPB 12/22/24 18:56 12/22/24 19:10 DC 12/22/24 19:31 200 MLS/HR Piperacillin Sod/ Tazobactam Sod (Zosyn 3.375gm+NS 50ml) 3.375 gm Q8H IV 12/23/24 02:00 01/02/25 01:59 12/27/24 09:21 3.375 GM Sodium Chloride 1,000 ml @ 0 mls/hr Q0M IV 12/23/24 00:30 12/23/24 01:30 DC Sodium Chloride 1,000 ml @ 125 mls/hr Q8H IV 12/23/24 00:00 12/24/24 15:02 DC 12/24/24 09:45 125 MLS/HR Physical Examination: Awake, alert, oriented x3 Unlabored Regular rate and rhythm Abdomen soft, nontender, nondistended Vital Signs (last 8hr) Date Time Temp Pulse Resp B/P (MAP) Pulse Ox O2 Delivery O2 Flow Rate FiO2 12/27/24 08:00 97.5 98 19 156/90 99 Room Air 21 Laboratory: [ ] Hematology Labs: Test 12/27/24 06:25 Range/Units White Blood Count 8.7 4.8-10.8 K/uL Red Blood Count 4.24 L 4.50-6.20 MIL/uL Hemoglobin 12.5 L 14.0-18.0 g/dL Hematocrit 38.3 L 42-54 % Mean Corpuscular Volume 90.3 79-99 fL Mean Corpuscular Hemoglobin 29.5 27.0-33.0 pg Mean Corpuscular Hemoglobin Concent 32.6 32.0-36.0 g/dL Red Cell Distribution Width 14.6 11.0-15.5 % Platelet Count 281 130-400 K/uL Mean Platelet Volume 9.0 7.5-10.5 fL Nucleated Red Blood Cells 0.0 0.0-0.19 % Chemistry Labs: Test 12/27/24 12:02 12/27/24 06:25 Range/Units Whole Blood Glucose 111 H 70-110 MG/DL Bedside Glucose Comment Notified Nurse Sodium Level 139 136-145 mmol/L Potassium Level 3.7 3.5-5.1 mmol/L Chloride Level 103 101-111 mmol/L Carbon Dioxide Level 26 21-32 mmol/L Blood Urea Nitrogen 13 7-18 mg/dL Creatinine 0.8 0.5-1.3 mg/dL Glomerular Filtration Rate Calc 118 >90 mL/min Random Glucose 110 H 70-105 mg/dL Total Calcium 8.6 8.5-10.1 mg/dL Procalcitonin 0.42 0.05-0.5 ng/mL Diagnostics / Radiology: [Copy/Paste Echos/Imaging Report here] Impression and Plan: [Colitis appears to be improving with conservative management. Patient is already on a regular diet. Recommend continue oral antibiotics. No surgical intervention plan. I would be happy to reconsult if needed. ] BECKY GARCÍA MD Dec 27, 2024 13:01
--- NOTE | 2024-12-27 13:30 | NUR ---
DC NOTE DC INSTRUCTIONS AND FOLLOW APPOINTMENT GIVEN TO PT AND MOTHER AT BEDSIDE. VERBALIZED UNDERSTANDING. PIV REMOVED, CATHETER INTACT, DENIES ANY PAIN OR DISCOMFORT. PT IS WHEELED DOWNSTAIRS INTO VIA PRIVATE CAR. NO FURTHER COMMENTS OR CONCERNS AT THIS TIME.
[2024-12-30] MEDS ORDERED: ERGOCALCIFEROL (VITAMIN D2) 50,000 UNIT CAPSULE PO SCH (09:00)
--- NOTE | 2024-12-30 17:15 | NUR ---
Transitional Phone Call Spoke to patient, states "doing a lot better, everyday it's getting better." States taking new prescription medication as instructed; no questions or concerns with medication. [facility] has a follow up appointment with GI - Dr. Pat on 01/09/2025; has a follow up appointment with PCP - Dr. Young Hutchison on 01/16/2025; [facility] surgeon - Dr. Rinaldi's office will contact patient with follow up appointment. No questions or concerns at this time.
== END 2024-12-27 13:30 | disposition home or self-care (01) | DRG 872 ==
LOC: EDH 18:12 → EDHIP 23:07 → 3DH 12-23 02:16
PROVIDERS: ADMIT Internal Medicine; ATTEND Internal Medicine
DX: A41.9 Sepsis, unspecified organism (principal); E87.20 Acidosis, unspecified; K81.0 Acute cholecystitis; Z68.41 Body mass index [BMI] 40.0-44.9, adult; E11.65 Type 2 diabetes mellitus with hyperglycemia; E66.01 Morbid (severe) obesity due to excess calories; K57.30 Diverticulosis of large intestine without perforation or abscess without bleeding; I10 Essential (primary) hypertension; Z20.822 Contact with and (suspected) exposure to COVID-19; K52.9 Noninfective gastroenteritis and colitis, unspecified; K76.0 Fatty (change of) liver, not elsewhere classified; K83.8 Other specified diseases of biliary tract; Z90.49 Acquired absence of other specified parts of digestive tract; Z79.899 Other long term (current) drug therapy
CPT/HCPCS: 36415; 71045; 74177; 76705; 78226; 80048; 80053; 80076; 80305; 81001; 82550; 82948; 83605; 83690; 83735; 84100; 84145; 84443; 84484; 85025; 85027; 87040; 87426; 87804; 87880; 93005; 99291; A9537; G0378; J1650; J2270; J2405; J2470; J2543; J3475; J3490; J7030; Q9967